=== PATIENT | male | born 1975 | race Caucasian/White ===

== ENCOUNTER 2017-04-08 08:00 | Outpatient (RCR) | payer BC, SELFPAY | END 2017-04-20 23:59 | LOC: NS 08:00 | PROVIDERS: PCP Family Medicine; Visit Provider Family Medicine | DX: E66.9 Obesity, unspecified (principal); Z68.41 Body mass index [BMI] 40.0-44.9, adult; Z71.3 Dietary counseling and surveillance | CPT/HCPCS: 97802; 97803 ==

== ENCOUNTER → 2017-05-04 17:33 | Outpatient (CLI) | payer BC, SELFPAY ==
--- NOTE | 2017-05-04 17:38 | RAD_ITS ---
STUDY: X-RAY - LEFT SHOULDER REASON FOR EXAM: Male, 42 years old. Pain TECHNIQUE: Four view(s) of the LEFT shoulder were obtained. COMPARISON: April 29, 2005 FINDINGS: The glenohumeral joint is within normal limits. The acromioclavicular joint is normal in appearance. No acute abnormalities are seen in the visualized clavicle. No acute abnormalities are seen in the visualized humerus. The soft tissues are unremarkable. The visualized lung and ribs are unremarkable. RAD/Shoulder min 2 Views IMPRESSION: No significant abnormalities are seen radiographically in the left shoulder. Electronically Signed: Ursula Martino MD at 13:42 EDT Tel Direct: [phone], Service support ,
== END ==
PROVIDERS: Family Provider Family Medicine; PCP Family Medicine; Visit Provider Anesthesiology Pain Medicine
DX: M25.512 Pain in left shoulder (principal)
CPT/HCPCS: 73030

== ENCOUNTER 2018-01-03 08:31 | Emergency (ER) | payer BC, SELFPAY ==
[2018-01-03 08:32] VITALS: BP 135/73; PULSE 70; RESP 18; TEMP 36.8; O2SAT 98; BMI 38.7
--- NOTE | 2018-01-03 08:43 | EKG12_ITS ---
Test Reason : Blood Pressure : / mmHG Vent. Rate : 074 BPM Atrial Rate : 074 BPM P-R Int : 156 ms QRS Dur : 098 ms QT Int : 392 ms P-R-T Axes : 042 -13 005 degrees QTc Int : 435 ms Normal sinus rhythm Normal ECG Confirmed by SAVANNA CARABALLO MD ([id number]), script editor BRODY RUDD ([id number]) on 01/06/2018 2:40:35 PM Referred By: RAMONA Confirmed By:SAVANNA CARABALLO MD
--- NOTE | 2018-01-03 08:45 | RAD_ITS ---
STUDY: X-RAY CHEST REASON FOR EXAM: Male, 42 years old. Chest pain and shortness of breath. TECHNIQUE: Single AP portable view of the chest. COMPARISON: None. FINDINGS: EKG electrodes are seen. The lungs are clear and expanded. There is no demonstrated pleural abnormality. Normal size heart. Normal mediastinum and flavia. Normal visualized pulmonary arteries. Normal visualized aortic arch and descending thoracic aorta. Normal visualized thoracic spine. Metallic anchor clips are seen overlying the right humeral head most likely secondary to prior rotator cuff surgery. There is no demonstrated abnormality of the visualized soft tissue structures of the upper abdomen. RAD/Chest 1 View (Portable) IMPRESSION: No acute abnormality is seen. Electronically Signed: Immanuel Sauer MD at 9:16 EST Tel [phone], Service support ,
[2018-01-03] MEDS: Aspirin 81 MG TAB.CHEW 324 MG PO (08:55)
[2018-01-03] MEDS: 0.9% Normal Saline 1,000 ML 150 ML IV (08:55)
[2018-01-03 08:56] VITALS: O2SAT 99
[2018-01-03 08:56] LABS: Absolute Lymphocyte Count 2.21 X10^3/ul (0.83-4.51); Basophil# 0.04 X10^3/uL; Basophil% 0.7 % (0-1); Eosinophil# 0.12 X10^3/uL; Hemoglobin 13.1 g/dl (13.0-16.5); Lymphocyte # 2.21 X10^3/ul (4.0); Lymphocyte % 36.3 % (19-41); Mean Corp Hgb Conc 32.8 g/gl (32-36); Mean Corpuscular Hgb 28.2 pg (27.0-32.0); Mean Corpuscular Volume 86.2 fL (80-94); Mean Platelet Vol. 8.3 fl (6.2-12.0); Monocyte# 0.73 X10^3/uL; Neutrophil # 2.98 X10^3/uL (2.7-7.7); Neutrophil % 48.8 % (47-70); Platelet Count 309 K/mm3 (150-450); RBC Distribution Width CV 13.3 % (11.6-14.6); RBC Distribution Width SD 40.7 fl (35.1-43.9); Red Blood Count 4.64 M/mm3 (4.6-6.2); White Blood Count 6.1 K/mm3 (4.4-11.0)
[2018-01-03] MEDS: LORazepam 2 MG/ML Syringe 1 MG IV (08:56)
[2018-01-03 08:57] LABS: POSITIVE COUNT NO; POSITIVE DIFFERENTIAL NO; POSITIVE MORPHOLOGY NO
[2018-01-03 09:22] LABS: BUN 16 mg/dL (7-18); Creatinine, Serum 1.24 mg/dL (0.70-1.30); Estimated Creatinine Clearance 76.61 ml/min; Glucose 113 mg/dL (74-106)
[2018-01-03 09:23] LABS: Anion Gap 10 (5-15); BUN/Creat Ratio 12.9 RATIO (10-20); Chloride 101 mmol/L (98-107); EST Glomerular Filtration Rate 68 mL/min (>60); Est Glom Filt Rate - Afr Amer 83 mL/min (>60); Potassium 4.1 mmol/L (3.5-5.1); Sodium Level 138 mmol/L (136-145)
[2018-01-03 09:55] VITALS: BP 111/75; PULSE 70; RESP 8; O2SAT 95
[2018-01-03 10:01] LABS: D-Dimer Quantitative (DVT/PE) < 0.27 FEU/ug/m (0.27-0.49)
[2018-01-03 10:16] VITALS: BP 131/82; PULSE 75; RESP 18; O2SAT 95
--- NOTE | 2018-01-03 10:23 | ED.VISSUMM ---
- ER Visit Summary Date of Service: 01/03/18 Chief Complaint: [Chest pain] History of Present Illness: The patient is a 42 M [presents to the emergency department complaint of chest pain that started about 45 minutes prior to coming the emergency department. Patient states that initially he was standing and began feeling lightheaded. Patient then developed tightness in his chest and numbness throughout his entire body. Patient felt very nauseated and felt short of breath. On arrival he is feeling improved but still has some mild retrosternal chest discomfort. Patient does have a history of anxiety and states that currently he is being weaned off his Effexor and is also on BuSpar currently. Patient denies recent travel or surgery. Patient also says that over the last week he has had intermittent chest tightness and discomfort but it is not been exertional and can just happen at any time. There is no family history of heart disease. Patient does not have a history of hypertension, diabetes, high cholesterol, or family history. Patient is not a smoker.] Physical Examination: [HEENT-PERRLA, EOMI. Cranial nerves II through XII grossly intact. TMs clear. Mucous membranes moist. No adenopathy. Cardiovascular-regular rate and rhythm without murmur or ectopy Lungs-clear to auscultation, chest wall stable without crepitus or subcu emphysema Abdomen-normoactive bowel sounds, soft, nontender, no rebound or rigidity, no peritoneal signs. Extremities-intact ?4, normal range of motion, normal pulses, atraumatic] Test Results: [EKG obtained arrival shows sinus rhythm with a ventricular rate of 74 bpm with no acute ST segment changes. CBC with differential was normal. Chemistries were normal. Troponin was less than 0.015. D-dimer was normal less than 0.27. Chest x-ray was normal.] Emergency Department Course and Treatment: While in the department patient was given aspirin and 1 mg of Ativan IV. Given his RYAN risk score of 0 and a heart score of 0 I had a long discussion with patient and explained to him that I thought he was low risk for cardiac disease and that I felt clinically and based on his symptomatology the etiology of his symptoms may be related more to anxiety. Patient in agreement however initially he did agree to stay for a 2-hour troponin. Patient eventually decided that he was feeling 100% resolved and without symptoms and did not want to wait for repeat troponin but would rather follow-up with his primary care physician.] Treatment Plan: [Follow-up with primary care physician within next 3-5 days. Patient advised to return if worsening chest pain, increasing shortness of breath, or condition should worsen anyway.] Disposition: [Discharged home in stable condition] Impression: [Chest pain Anxiety] This note was generated with [employer] dictation software. It may contain incorrect words, spelling, and punctuation that were not noted in review of the chart prior to signing ED Disposition - Plan for ED Patient: Chief Complaint: Chest Pain Referrals: David Montoya MD [Primary Care Provider] -
--- NOTE | 2018-01-03 10:26 | ED.DEP ---
ED Disposition - Plan for ED Patient: Chief Complaint: Chest Pain Instructions: ED Chest Pain Atypical Unkn Cause, ED Stress React Referrals: David Montoya MD [Primary Care Provider] - 3-5 Days
[2018-01-03 11:03] VITALS: BP 128/75; PULSE 66; RESP 14; O2SAT 97
== END 2018-01-03 11:04 | disposition home or self-care (01) ==
PROVIDERS: Emergency Provider Emergency Medicine; Family Provider Family Medicine; PCP Family Medicine
DX: R07.9 Chest pain, unspecified (principal); F41.9 Anxiety disorder, unspecified; R42 Dizziness and giddiness; R20.0 Anesthesia of skin; R11.0 Nausea; R06.02 Shortness of breath; I49.3 Ventricular premature depolarization; Z79.899 Other long term (current) drug therapy
CPT/HCPCS: 71045; 80048; 84484; 85025; 85379; 93005; 96361; 96374; 99284; J7030; A4216

== ENCOUNTER → 2018-07-20 06:04 | Outpatient (CLI) | payer BC, SELFPAY ==
[2018-03-25 09:20] VITALS: BMI 45.6
[2018-07-20 08:04] LABS: ALB/GLOB Ratio 0.8 RATIO (0.9-2.4); AST(SGOT) 24 U/L (15-37); Alanine Aminotransfer ALT/SGPT 48 U/L (16-61); Albumin, Serum 3.5 g/dL (3.2-5.0); Alkaline Phosphatase 55 U/L (45-117); Anion Gap 11 (5-15); BUN 17 mg/dL (7-18); BUN/Creat Ratio 13.2 RATIO (10-20); Calcium,Total 9.2 mg/dL (8.5-10.1); Chloride 103 mmol/L (98-107); Cholesterol 233 mg/dL (200); Creatinine, Serum 1.29 mg/dL (0.70-1.30); EST Glomerular Filtration Rate 65 mL/min (>60); Est Glom Filt Rate - Afr Amer 79 mL/min (>60); Globulin 4.4 g/dL (2.2-4.2); Glucose 106 mg/dL (74-106); High Density Lipoprotein 34 mg/dL; Potassium 3.9 mmol/L (3.5-5.1); Protein, Total 7.9 g/dL (6.4-8.2); Sodium Level 141 mmol/L (136-145); Triglycerides 267 mg/dL; Very Low Density Lipoprotein 53 mg/dL (5-40)
== END ==
LOC: LAB.FUTURE 06:09 → LAB 07-21 10:50
PROVIDERS: Family Provider Family Medicine; PCP Family Medicine; Referring Provider Family Medicine; Visit Provider Family Medicine
DX: E78.5 Hyperlipidemia, unspecified (principal); R73.01 Impaired fasting glucose
CPT/HCPCS: 36415; 80053; 80061

== ENCOUNTER → 2018-09-29 08:00 | Outpatient (CLI) | payer BC, SELFPAY ==
[2018-03-25 09:20] VITALS: BMI 45.6
[2018-09-29 10:13] LABS: Hematocrit 41.2 % (40-54); Hemoglobin 13.3 g/dL (13.0-16.5); Mean Corp Hgb Conc 32.3 g/dL (32-36); Mean Corpuscular Hgb 28.4 pg (27.0-32.0); Mean Platelet Vol. 9.1 fl (6.2-12.0); Platelet Count 278 K/mm3 (150-450); RBC Distribution Width CV 12.5 % (11.6-14.6); RBC Distribution Width SD 40.4 fl (35.1-43.9); Red Blood Count 4.68 M/mm3 (4.6-6.2); White Blood Count 5.8 K/mm3 (4.4-11.0)
[2018-09-29 10:51] LABS: Vitamin B12 481 pg/mL (211-911); Vitamin D,25 Hydroxy 21.2 ng/mL (29.95-100.01)
[2018-09-29 10:59] LABS: Iron 56 ug/dL (65-175)
== END ==
PROVIDERS: Family Provider Family Medicine; PCP Family Medicine; Referring Provider Family Medicine; Visit Provider Family Medicine
DX: R42 Dizziness and giddiness (principal); R53.83 Other fatigue
CPT/HCPCS: 36415; 82306; 82607; 83540; 84403; 84443; 85027

== ENCOUNTER → 2019-03-28 15:10 | Outpatient (CLI) | payer BC, SELFPAY ==
[2018-03-25 09:20] VITALS: BMI 45.6
--- NOTE | 2019-03-28 15:30 | MRI_ITS ---
STUDY: MRI LUMBAR SPINE WITHOUT CONTRAST REASON FOR EXAM: Male, 44 years old. LOWER BACK PAIN -- pain low back and left leg x 3 years, NKI TECHNIQUE: Standardized fat and water weighted pulse sequences were obtained in the sagittal and axial planes. COMPARISON: Lumbar spine x-ray dated July 07, 2016 FINDINGS: No demonstrated marrow edema or compression deformity or fracture line. Predominance of red marrow noted. No suspicious or aggressive marrow process is present. Normal lumbar lordosis. There is no substantial scoliosis. Normal conus medullaris that terminates at the T12. L1-2: Normal. L2-3: Normal. L3-4: Minimal endplate degenerative signal is present. Moderate disc space narrowing is present without bulging or herniation. Normal bilateral facet joints. Normal central canal and bilateral lateral recesses. Normal bilateral intervertebral neural foramina. L4-5: Normal endplates. Normal disc height, hydration and morphology. Normal bilateral facet joints. Normal central canal and bilateral lateral recesses. Normal bilateral intervertebral neural foramina. L5-S1: Normal endplates. Mild posterior disc space narrowing is present as well as a small tear in the posterior aspect of the annulus of the disc with an associated disc protrusion. Normal bilateral facet joints. Normal central canal and bilateral lateral recesses. Normal bilateral intervertebral neural foramina. Normal visualized sacral ala. Normal visualized paraspinous soft tissue structures. MRI/Spine Lumbar (Routine) IMPRESSION: 1. Multilevel degenerative changes, as described above. 2. Small annular tear and disc protrusion at L5-S1. Electronically Signed: Chan Medrano MD at 21:55 EST , Service support ,
== END ==
PROVIDERS: PCP Family Medicine; Referring Provider Anesthesiology Pain Medicine; Visit Provider Anesthesiology Pain Medicine
DX: M54.9 Dorsalgia, unspecified (principal); M79.606 Pain in leg, unspecified
CPT/HCPCS: 72148

== ENCOUNTER 2019-04-03 09:20 | Emergency (ER) | payer BC, SELFPAY ==
[2018-03-25 09:20] VITALS: BMI 45.6
[2019-04-03 09:21] VITALS: BP 150/94; PULSE 66; RESP 15; TEMP 36.6; O2SAT 98; BMI 41.8
--- NOTE | 2019-04-03 10:02 | EKG12_ITS ---
Test Reason : CP Blood Pressure : / mmHG Vent. Rate : 065 BPM Atrial Rate : 065 BPM P-R Int : 148 ms QRS Dur : 094 ms QT Int : 408 ms P-R-T Axes : 042 -18 002 degrees QTc Int : 424 ms Normal sinus rhythm Normal ECG Confirmed by SANDRINE RAMIREZ ([id number]), newspaper copy editor BRODY RUDD ([id number]) on 04/05/2019 3:19:03 PM Referred By: LUCINA Confirmed By:SANDRINE RAMIREZ
--- NOTE | 2019-04-03 10:03 | ED.DCSUM_ITS ---
History of Present Illness Chief Complaint: Chest Pain Informant: Patient Narrative: Patient presents to the emergency department with intermittent chest pain. 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 On Tuesday he began to experience 20 to 30 seconds of what he describes as a heart ache. This was followed with resolution but then a sharp pain in the shoulder and the arm that resolved after several minutes. He did note some associated sweating and shortness of breath. He states each episode would be a little bit different in its location in the chest but it always finalized with the arm pain. He states that he intermittently gets aches in his chest but this felt different. This morning he felt short of breath so he called his PCP who recommended he come to emergency. No first-degree relatives with coronary artery disease under the age of 55. He denies any history of hypertension high cholesterol diabetes. No recent long travel or surgeries. No previous history of DVT PE. Patient is very physically active and works construction. All of his symptoms came on over the weekend while at rest and none with exertion. Past Medical History - Allergies and Home Meds Allergies/Adverse Reactions: Allergies No Known Allergies Allergy (Verified 04/03/19 09:29) Primary Care Physician: David Montoya MD [Primary Care Provider] - Smoking Status: Former smoker Review of Systems General: Denies: Chills, Fever, Sweats Eyes: Denies: Visual changes - bilaterally, Diplopia ENT: Denies: Rhinorrhea, Sore throat Cardiovascular: Reports: Chest pain. Denies: Palpitations Respiratory: Reports: Dyspnea. Denies: Cough, Dyspnea on exertion Gastrointestinal: Denies: Abdominal pain, Nausea, Vomiting, Diarrhea, Melena, Hematochezia Genitourinary: Denies: Dysuria, Hematuria, Frequency Musculoskeletal: Denies: Back pain, Extremity Pain Skin: Denies: Rash, Wounds Neurological: Denies: Headache, Weakness, Numbness Psych: Reports: Anxiety. Denies: Depression, Suicidal thoughts, Suicidal ideations Physical Exam Vital Signs/Narrative: Vital Signs Temp Pulse Resp BP Pulse Ox 04/03/19 09:21 98 F 66 15 150/94 H 98 Inital Vital Signs reviewed: Yes General: Well nourished, Well developed, Obese, No Acute Distress Head: Normocephalic, Atraumatic Eyes: Perrl, EOMI ENT: Moist mucous membranes, No rhinorrhea Neck: Supple, Nontender Cardiovascular: Regular rate, Regular rhythm, No murmurs Respiratory: No distress, CTA bilaterally, Chest nontender Abdomen: Soft, Nontender, Nondistended, Normal bowel sounds Back: Nontender, Normal Inspection Extremities: Nontender, No edema Skin: Normal color, No rash Neurological: Alert, Oriented x3, Cranial nerves II-XII grossly intact, Normal Strength, Normal Sensation Psychological: Normal affect, Normal Mood Diagnostic/Tx/Re-eval - Rhythm Strip Rhythm Strip: Sinus Rhythm Rate: 65 Ectopy: None - Medical Decision Making EKG is a normal sinus rhythm. Troponin is negative d-dimer is negative. Chest x-ray shows a normal mediastinal silhouette. Patient's heart score is 2 which puts him in the low risk category. Patient will follow-up as an outpatient for cardiac stress testing return if worsening or concerns. All discussion and answers were done at the bedside to the satisfaction of the patient. ED Disposition - Plan for ED Patient: Disposition: Home or Assisted Living Diagnosis: Chest pain Instructions: CHEST PAIN, Uncertain Cause Referrals: David Montoya MD [Primary Care Provider] - As soon as possible (discuss cardiac stress testing to complete your cardiac evaluation)
--- NOTE | 2019-04-03 10:03 | RAD_ITS ---
STUDY: X-RAY CHEST REASON FOR EXAM: Male, 44 years old. PT C/O 4-5 EPISODES OF CP OVER THE WEEKEND THAT LAST 20-30 SECONDS. THEY WERE FOLLOWED BY A STABBING PAIN IN LEFT ARM AND THEN DULL ACHE IN ELBOW. PT HAS ALSO BEEN INTERMITTENTLY FEELING LIGHTHEADED AND LIKE HE CAN''T QUITE CATCH HIS BREATH -- HX VENTRICULAR ECTOPY TECHNIQUE: PA and lateral views of the chest. COMPARISON: Comparison is made with prior examination dated January 03, 2018. FINDINGS: EKG electrodes are seen. The lungs are clear and expanded. There is no demonstrated pleural abnormality. Normal size heart. Normal mediastinum and flavia. Normal visualized pulmonary arteries. Normal visualized aortic arch and descending thoracic aorta. Normal visualized thoracic spine. Normal visualized ribs, clavicles, and shoulders. There is no demonstrated abnormality of the visualized soft tissue structures of the upper abdomen. RAD/Chest PA and Lateral IMPRESSION: Normal x-ray examination of the chest. Electronically Signed: Immanuel Sauer, at 10:43 EST , Service support ,
[2019-04-03 10:14] LABS: Absolute Lymphocyte Count 2.58 X10^3/uL (0.83-4.51); Absolute Neutrophil Count 4.8 X10^3/uL (2.0-7.7); Basophil# 0.04 X10^3/uL; Basophil% 0.5 % (0-1); Eosinophil# 0.13 X10^3/uL; Eosinophils% 1.5 % (0-5); Hematocrit 44.1 % (40-54); Hemoglobin 14.1 g/dL (13.0-16.5); Lymphocyte # 2.58 X10^3/ul (4.0); Lymphocyte % 30.5 % (19-41); Mean Corpuscular Hgb 28.3 pg (27.0-32.0); Mean Corpuscular Volume 88.6 fL (80-94); Mean Platelet Vol. 8.4 fl (6.2-12.0); Monocyte# 0.83 X10^3/uL; Monocyte% 9.8 % (0-10); NRBC Flagged by Analyzer 0 % (0-5); Neutrophil % 56.6 % (47-70); Platelet Count 292 K/mm3 (150-450); RBC Distribution Width CV 13.3 % (11.6-14.6); RBC Distribution Width SD 43.4 fl (35.1-43.9); Red Blood Count 4.98 M/mm3 (4.6-6.2); White Blood Count 8.5 K/mm3 (4.4-11.0)
[2019-04-03 10:23] LABS: D-Dimer Quantitative (DVT/PE) <= 0.27 FEU/ug/m (0.27-0.49)
[2019-04-03 10:24] LABS: Anion Gap 6 (5-15); BUN 18 mg/dL (7-18); BUN/Creat Ratio 15.1 RATIO (10-20); Calcium,Total 9.3 mg/dL (8.5-10.1); Chloride 104 mmol/L (98-107); Creatinine, Serum 1.19 mg/dL (0.70-1.30); EST Glomerular Filtration Rate 71 mL/min (>60); Est Glom Filt Rate - Afr Amer 86 mL/min (>60); Estimated Creatinine Clearance 78.24 ml/min; Glucose 103 mg/dL (74-106); Potassium 3.9 mmol/L (3.5-5.1); Sodium Level 138 mmol/L (136-145)
[2019-04-03 10:47] VITALS: BP 151/93; PULSE 58; RESP 18; O2SAT 99
[2019-04-03 12:16] VITALS: BP 148/79; PULSE 61; RESP 16; O2SAT 98
== END 2019-04-03 12:17 | disposition home or self-care (01) ==
PROVIDERS: Emergency Provider Emergency Medicine; PCP Family Medicine
DX: R07.89 Other chest pain (principal); R06.02 Shortness of breath; M25.519 Pain in unspecified shoulder; Z87.891 Personal history of nicotine dependence
CPT/HCPCS: 71046; 80048; 84484; 85025; 85379; 93005; 99284; A4216

== ENCOUNTER → 2019-04-07 | Outpatient (CLI) | payer BC, SELFPAY ==
[2019-04-07 09:44] VITALS: BMI 41.8
--- NOTE | 2019-04-07 09:50 | MASS_PTH ---
PATIENT: VAIBHAV SOTO LOC: [facility] U#:[id number] AGE/SX: 44/M ROOM: RE04/07/[address]: Dr. José Miguel Arvizu MD : [id number] BED: DIS: 04/07/2019 SPEC #: [id number] RECD: 04/09/19 07:16 STATUS: TRICIA JULIUS #: [id number] LUCY: 04/07/19 09:[address]: José Miguel Arvizu DEPT: SURGICAL PATHOLOGY RECD BY: Andrew Barillas ENTERED: 04/09/19 09:17 SP TYPE: Mass OTHR DR: Dr. Hoang Montoya MD Tissues: Scalp, NOS Procedures: Surgery Specimen Level IV HEADER OPERATION: Excision scalp mass PRE-OP DIAGNOSIS: Scalp mass TISSUE SUBMITTED: Scalp tissue MICROSCOPIC DIAGNOSIS Scalp mass, biopsy: Mature adipose tissue, consistent with lipoma. KRISTIN:carroll 04/10/19 MICROSCOPIC DESCRIPTION Slides are reviewed. GROSS DESCRIPTION Received in fixative is one container labeled with the patient's name and designated scalp tissue. The specimen consists of an ovoid fragment of yellow fatty tissue measuring 2.9 x 2.4 x 0.8 cm. Serial sections reveal homogenous, yellow cut surfaces without areas of cyst formation, necrosis or myxoid change. Pet Care Attendant sections are submitted in one cassette. / AM:carroll 04/09/19 TC:1 CPT: 13509
== END | disposition home or self-care (01) ==
LOC: LABSPEC 04-09 08:32
PROVIDERS: PCP Family Medicine; Referring Provider Surgery; Visit Provider Surgery
DX: L98.9 Disorder of the skin and subcutaneous tissue, unspecified (principal)
CPT/HCPCS: 88305

== ENCOUNTER → 2019-04-18 06:40 | Outpatient (CLI) | payer BC, SELFPAY ==
[2019-04-07 09:44] VITALS: BMI 41.8
--- NOTE | 2019-04-20 15:29 | STRESSREP ---
Stress Test Report Date: [04/18/2019] Procedure: Exercise tolerance test/imaging study Indications: Chest pain Consent: Per the patient Procedure: The patient exercised on a Sharif protocol for 7 minutes and 30 seconds achieving a peak heart rate of 162 bpm (91 % predicted maximal heart rate) with a peak blood pressure 140/82 mmHg and a peak MET capacity of 9.3 METs. The baseline ECG demonstrated normal sinus rhythm. The peak exercise ECG demonstrated no significant ischemic changes. EKG during recovery revealed no significant ischemic changes [There were no cardiac dysrhythmias pretest, during exercise, or recovery]. The functional capacity was slightly decreased for age. There was [no complaint of chest discomfort during exercise or recovery]. The examination was discontinued secondary to dyspnea, leg discomfort. Impression: 1. Technically adequate (percent predicted maximal heart rate greater than 85%) exercise tolerance test 2. Stress test is negative for exercise-induced EKG changes of ischemia 3. The test test is negative for exercise-induced chest pain 4. Functional capacity is slightly decreased for age 5. Nuclear images pending Myocardial perfusion imaging study: Technique: The patient was injected with 14.7 mCi of technetium 99m Cardiolite and subsequently rest SPECT Cardiolite nuclear imaging was obtained in the horizontal long, vertical long, and short axis views. The patient exercised on a Sharif protocol. Please see above for details. The patient was injected with 44.9 mCi of technetium 99m Cardiolite and subsequently stress SPECT Cardiolite nuclear imaging was obtained in the horizontal long, vertical long, and short axis views. A gated Cardiolite study at peak stress was obtained. Interpretation: Rest and stress SPECT Cardiolite nuclear imaging status post realignment, normalization, and attenuation correction, demonstrates mild decrease in the myocardial radioisotope uptake in the apex on both the rest and stress images. There is no significant reversibility. These findings are suggestive of apical thinning, normal variant. The gated Cardiolite study demonstrates no significant regional wall motion abnormalities. The reported LVEF is 63 %. Impression: 1. There is no evidence of significant ischemia or infarction. 2. The gated Cardiolite study reports an LVEF of 63 %. This note was generated with [employer]ation software. It may contain incorrect words, spelling, and punctuation that were not noted in checking the note before signing.
== END ==
PROVIDERS: PCP Family Medicine; Referring Provider Family Medicine; Visit Provider Family Medicine
DX: R07.9 Chest pain, unspecified (principal)
CPT/HCPCS: 78452; 93017; A9500; A4216

== ENCOUNTER → 2020-05-07 17:20 | Outpatient (CLI) | payer BC, SELFPAY ==
[2019-04-07 09:44] VITALS: BMI 41.8
--- NOTE | 2020-05-07 17:22 | RAD_ITS ---
STUDY: X-RAY - CERVICAL SPINE REASON FOR EXAM: Male, 45 years old. HEADACHE TECHNIQUE: 7 view(s) of the cervical spine were obtained including oblique views and flexion and extension views.. COMPARISON: None FINDINGS: Normal anterior atlantoaxial articulation. Normal odontoid process. There is straightening of the normal cervical lordosis. Normal vertebral bodies and endplates. Normal disc space heights. Normal visualized intervertebral neuroforamina. The soft tissue structures are unremarkable. RAD/Cerv Spine Obl/Flex/Ext Comp IMPRESSION: Normal x-ray examination of the visualized cervical spine. Electronically Signed: Immanuel Sauer MD at 15:46 EDT , Service support ,
== END ==
PROVIDERS: PCP Family Medicine; Referring Provider Family Medicine; Visit Provider Family Medicine
DX: R51.9 Headache, unspecified (principal)
CPT/HCPCS: 72052

== ENCOUNTER → 2020-10-17 07:05 | Outpatient (CLI) | payer BC, SELFPAY ==
[2020-10-17 10:19] LABS: Absolute Lymphocyte Count 2.04 X10^3/uL (0.83-4.51); Absolute Neutrophil Count 2.7 X10^3/uL (2.0-7.7); Basophil# 0.07 X10^3/uL; Basophil% 1.2 % (0-1); Eosinophil# 0.17 X10^3/uL; Eosinophils% 2.9 % (0-5); Hemoglobin 12.7 g/dL (13.0-16.5); Lymphocyte # 2.04 X10^3/ul (0.83-4.51); Lymphocyte % 34.5 % (19-41); Mean Corp Hgb Conc 32.6 g/dL (32-36); Mean Corpuscular Hgb 28.7 pg (27.0-32.0); Mean Corpuscular Volume 88.2 fL (80-94); Mean Platelet Vol. 9.5 fl (6.2-12.0); Monocyte# 0.95 X10^3/uL; NRBC Flagged by Analyzer 0 % (0-5); Neutrophil # 2.68 X10^3/uL (2.7-7.7); Neutrophil % 45.2 % (47-70); Platelet Count 257 K/mm3 (150-450); RBC Distribution Width CV 12.6 % (11.6-14.6); RBC Distribution Width SD 40.8 fl (35.1-43.9); Red Blood Count 4.42 M/mm3 (4.6-6.2); White Blood Count 5.9 K/mm3 (4.4-11.0)
[2020-10-17 10:42] LABS: Vitamin D,25 Hydroxy 29.4 ng/mL
[2020-10-17 11:07] LABS: ALB/GLOB Ratio 0.9 RATIO (0.9-2.4); AST(SGOT) 20 U/L (15-37); Alanine Aminotransfer ALT/SGPT 54 U/L (16-61); Albumin, Serum 3.4 g/dL (3.2-5.0); Alkaline Phosphatase 61 U/L (45-117); Anion Gap 6 (5-15); BUN 14 mg/dL (7-18); BUN/Creat Ratio 12.6 RATIO (10-20); Calcium,Total 8.8 mg/dL (8.5-10.1); Chloride 107 mmol/L (98-107); Creatinine, Serum 1.11 mg/dL (0.70-1.30); EST Glomerular Filtration Rate 77 mL/min (>60); Est Glom Filt Rate - Afr Amer 93 mL/min (>60); Globulin 3.9 g/dL (2.2-4.2); Glucose 113 mg/dL (74-106); Potassium 4.4 mmol/L (3.5-5.1); Protein, Total 7.3 g/dL (6.4-8.2); Sodium Level 140 mmol/L (136-145)
== END ==
PROVIDERS: PCP Family Medicine; Referring Provider Family Medicine; Visit Provider Family Medicine
DX: Z00.00 Encounter for general adult medical examination without abnormal findings (principal); R14.0 Abdominal distension (gaseous); E55.9 Vitamin D deficiency, unspecified
CPT/HCPCS: 36415; 80053; 82306; 85025

== ENCOUNTER → 2020-10-20 08:51 | Outpatient (CLI) | payer BC, SELFPAY ==
--- NOTE | 2020-10-20 09:05 | RAD_ITS ---
CLINICAL INDICATION: 45-year-old female presenting with dysphagia. EXAM: Double contrast esophagram. TECHNIQUE: Standard double phase esophagram performed with effervescent capsules and thick and thin barium. FINDINGS: Unremarkable transit of the contrast bolus within the oral cavity, unremarkable transit through the hypopharynx, no evidence of laryngeal penetration or aspiration was seen. Unremarkable transit through the esophagus, no evidence of gastroesophageal stricture or webs, no evidence of esophageal diverticula visualized. Unremarkable esophageal peristalsis seen. Small type I hiatus hernia visualized Fluoroscopy time 1.15 minutes. Dose area product: 132.06 mGycm2 RAD/Esophagus Dual Contrast IMPRESSION: Small type I hiatus hernia and mild gastroesophageal reflux. Electronically Signed: Juan Pablo Falcon MD at 12:29 EDT Tel , Service support ,
== END ==
PROVIDERS: PCP Family Medicine; Referring Provider Family Medicine; Visit Provider Family Medicine
DX: R14.0 Abdominal distension (gaseous) (principal)
CPT/HCPCS: 74221

== ENCOUNTER 2020-10-31 06:32 | Emergency (ER) | payer OTHER, BC, SELFPAY ==
[2020-10-31 06:35] VITALS: BP 158/100; PULSE 68; RESP 22; TEMP 35.2; O2SAT 98; BMI 45.1
--- NOTE | 2020-10-31 06:43 | RAD_ITS ---
STUDY: X-RAY - RIGHT HAND REASON FOR EXAM: Right hand injury, swelling, open wound between first and second metacarpals. TECHNIQUE: 3 view(s) of the hand. COMPARISON: None. FINDINGS: Normal radiocarpal articulation. Normal distal radioulnar joint. Normal visualized carpal bones. Normal carpal articulations Normal carpometacarpal articulation of the thumb. Normal second through fifth carpometacarpal joints. Normal metacarpi. Normal metacarpophalangeal joint of the thumb. Normal interphalangeal joint of the thumb. Normal proximal and distal phalanges of the thumb. Normal metacarpophalangeal joints of the second through fifth fingers. Normal proximal and distal interphalangeal joints of the second through fifth fingers. Normal phalanges of the second through fifth fingers. There is soft tissue swelling between the first and second metacarpals. RAD/Hand Min 3 Views IMPRESSION: Soft tissue swelling. No demonstrated fracture. Electronically Signed: Lefty Ramirez MD at 7:11 EDT Tel , Service support ,
--- NOTE | 2020-10-31 06:48 | NURSING ---
CALLED [facility]. NO ONE ANSWER. CALLED YULIYA
[2020-10-31] MEDS: Ondansetron 4 MG/2 ML Vial IV (06:55)
--- NOTE | 2020-10-31 06:55 | NURSING ---
[facility], CALLED BACK JORY [facility], CALLED BACK. JORY IN ROUTE.
[2020-10-31] MEDS: Morphine 4 MG/ML Syringe IV (06:57)
--- NOTE | 2020-10-31 08:34 | EDS_ITS ---
HPI History of Present Illness Chief Complaint: Upper Extremity Injury Informant: patient Narrative Narrative: 45-year-old male presents to the emergency room after a crush injury to the right hand. Patient had a large piece of concrete fall down onto his hand. Notes lacerations he states that the hand is swollen and feels numb. Tetanus Immunization: <5 years [facility] Medical History Anxiety Hiatal hernia Lipoma Home Medications nebivolol 5 mg PO QODAY 01/03/18 [History Last Taken 01/03/18 5 MG] venlafaxine 112.5 mg PO QHS 01/03/18 [History Last Taken 01/03/18 25 MG] Allergy/AdvReac Type Severity Reaction Status Date / Time No Known Allergies Allergy Verified 10/31/20 06:33 Social History (Updated 10/31/20 @ 08:[address] Luis Manuel Tripp DO) Smoking Status: Current some day smoker tobacco type: smokeless tobacco substance use type: does not use ROS ROS ED Constitutional Constitutional ED: Denies chills or weight loss Eyes Eyes: Denies change in vision or diplopia ENT ENT ED: Denies ear pain, rhinorrhea or sore throat Cardiovascular Cardiovascular: Denies chest pain, orthopnea, palpitations or racing heartbeat Respiratory/Chest Respiratory/Chest: Denies cough, dyspnea or orthopnea Gastrointestinal Gastrointestinal: Denies abdominal pain, diarrhea, nausea or vomiting Genitourinary Genitourinary ED: Denies dysuria, hematuria or urinary frequency Musculoskeletal Musculoskeletal: Denies arthralgias or myalgias Integumentary Reports Abrasions and other Details: Right hand lacerations ; Denies abscess or rash Neurologic Neurologic: Denies headache(s) or weakness Psychiatric Psychiatric: Denies anxiety, depression, suicidal ideation or suicidal thoughts Endocrine Endocrinology: Denies polydipsia, polyphagia or polyuria Allergic/Immunologic Allergic/Immunologic ED: Denies mouth swelling, tongue swelling or urticaria EXAM Physical Exam Const Vital Signs: 10/31/20 06:35 Temperature 95.4 F L Temperature Source Temporal Pulse Rate 68 Respiratory Rate 22 H Blood Pressure 158/100 H Blood Pressure Mean 119 Pulse Ox 98 Oxygen Delivery Method Room Air Positive well nourished and well developed General Appearance ED: well developed HEENT Reports normocephalic, head/scalp atraumatic and moist mucous membranes Eyes PERRL and EOMs intact bilaterally Neck no lymphadenopathy, supple and no JVD Resp normal respiratory effort and clear to auscultation bilaterally Cardio regular rate, regular rhythm and no murmurs GI normal to inspection, nondistended, normoactive bowel sounds and non-tender Palpation: soft Back/Spine no CVA tenderness and normal ROM Extremity full ROM Extremity Narrative: Excellent capillary refill of all 5 fingers of the right hand. General Extremety ED: Yes edema General Extremity: edema Neuro oriented x3 and CN's II-XII intact bilaterally Sensorium / Orientation: alert Motor Exam: strength 5/5 throughout Psych mental status grossly normal Mood & Affect: Negative for depressed or tearful Skin no rashes or lesions noted and no wounds Skin Narrative: There is a 3-1/2 cm linear laceration in the webspace between the thumb and index finger. There is a 2 cm laceration over the dorsum of the mid right hand. There are multiple skin avulsions of the dorsum of the right hand and thumb. He reports decreased sensation of the fingers and hand MDM MDM MDM Narrative Medical decision making narrative: My interpretation of the plain films of the right hand is no acute fracture. Noted soft tissue swelling. Wounds were locally anesthetized using 1% lidocaine. They were washed with Shur-Clens and explored. There were closed using 3-0 Ethilon sutures. The wounds with the skin avulsions were debrided. Wounds were then dressed with Vaseline-based gauze and then sterile Krista. Patient reports that all the sensation has returned to his fingers with the exception of for the medial aspect of the right thumb. This could be due to the lidocaine infiltration however I cannot rule out a nerve injury. He reported decreased sensation of all the fingers and hand on arrival. Patient was advised to monitor for this she is Workmen's Comp. when he sees them. Work restrictions given. Follow-up with Workmen's Comp. Radiography Diagnostic Testing: Radiology Impression Hand X-Ray 10/31/20 06:43 IMPRESSION: Soft tissue swelling. No demonstrated fracture. Electronically Signed: Lefty Ramirez MD at 7:11 EDT Tel , Service support , Discharge Plan Triage Chief Complaint: Upper Extremity Injury ED Provider: Luis Manuel Tripp Dx/Rx/DC Orders Clinical Impression: Crushing injury of right hand, Laceration of hand, right, Avulsion of skin of right hand Instructions: ED Crush Injury, Hand, ED Laceration: All Closures Prescriptions: No Action venlafaxine 100 MG tablet 112.5 mg PO QHS RF: 0 nebivolol 5 MG tablet 5 mg PO QODAY RF: 0 Primary Care Provider: David Montoya Referrals: David Montoya MD [Primary Care Provider] - [facility] - 10 Day for suture removal Disposition Disposition: Home, Self Care Discharge Date/Time: 10/31/20 09:31
[2020-10-31 09:27] VITALS: PULSE 81; RESP 18; O2SAT 99
--- NOTE | 2020-10-31 09:28 | ED.RN ---
THIS NURSE REVIEWED D/C INSTRUCTIONS WITH PT AND . BOTH VERBALIZED UNDERSTANDING OF INSTRUCTIONS. IV D/C. IV CATHETER INTACT. PT TOLERATED WELL. PT DENIES FURTHER NEEDS OR QUESTIONS AT THIS TIME. PT AMBULATES FROM ROOM ON OWN WITHOUT ASSISTANCE FROM STAFF
[2020-10-31] MEDS: Lidocaine 1% (20 ml mdv) 20 ML Vial INFILT (09:30)
== END 2020-10-31 09:31 | disposition home or self-care (01) ==
PROVIDERS: Emergency Provider Emergency Medicine; PCP Family Medicine
DX: S67.21XA Crushing injury of right hand, initial encounter (principal); S61.411A Laceration without foreign body of right hand, initial encounter; S61.401A Unspecified open wound of right hand, initial encounter; W23.0XXA Caught, crushed, jammed, or pinched between moving objects, initial encounter; Y93.9 Activity, unspecified; Y92.9 Unspecified place or not applicable; Y99.0 Civilian activity done for income or pay; F41.9 Anxiety disorder, unspecified; F17.200 Nicotine dependence, unspecified, uncomplicated; Z79.899 Other long term (current) drug therapy
CPT/HCPCS: 12002; 73130; 96374; 96375; 99285; J7040; A4216; J2405

== ENCOUNTER 2021-01-08 06:30 | Day surgery (SDC) | payer BC, SELFPAY ==
[2021-01-08] VITALS (7 sets, daily range): BP systolic 122–138; BP diastolic 71–82; PULSE 58–69; RESP 16; TEMP 36.2–36.5; O2SAT 95–100; BMI 43.9
--- NOTE | 2021-01-08 | IMM_PTH ---
PATIENT: VAIBHAV SOTO LOC: EN U#:[id number] AGE/SX: 45/M ROOM: RE01/08/[address]: Dr. Ernesto Gaspar DO : 1975 BED: DIS: 01/08/2021 SPEC #: [id number] RECD: 01/08/21 12:43 STATUS: TRICIA REKeshia #: [id number] LUCY: 01/08/21 00:[address]: Ernesto Gaspar DEPT: IMMUNOHISTOCHEMISTRY RECD BY: Cande English ENTERED: 01/08/21 12:43 SP TYPE: IMMUNO OTHR DR: Dr. Hoang Montoya MD Tissues: A - Stomach, NOS C - Pylorus D - Esophagus, NOS Procedures: H Pylori (initial) P53 (initial) KI-67 (add) PHYSICIAN & INSTITUTION [place] [id number] SPECIMEN INFORMATION: Tissue Source: A ? Gastric antrum biopsy, C ? Pylorus biopsy, D ? Distal esophagus biopsy Clinical Info: Anemia, change in bowel habits, bloating Specimen Number: [id number] A, C & D CPT code: 18926 x3, 31642 x2 METHODOLOGY: Deparaffinized sections of prefer/formalin-fixed tissue or PAP/DQ stained slides are incubated with monoclonal/polyclonal antibodies/oligonucleotide probes. Localization is made via biotin free immunoperoxidase method. Appropriate controls are performed and reacted as expected. Results on target cell population are indicated in the following table: RESULTS: ANTIBODY / CLONE RESULT Block A H Pylori (polyclonal) negative Block C P53 (DO-7) negative Ki-67 (30-9) positive, low Block D P53 (DO-7) positive Ki-67 (30-9) positive, low These tests were developed and their performance characteristics determined by [facility]. They may not have been cleared or approved by the U.S. Food and Drug Administration. The FDA has determined that such clearance or approval is not necessary. The above immunohistochemical/dualISH markers are ordered and reviewed by the pathologist. INTERPRETATION: A. Gastric antrum, biopsy: Negative for Helicobacter pylori organisms. C. Pylorus, biopsy: No evidence of dysplasia. D. Distal esophagus, biopsy: No evidence of dysplasia. AM:carroll 01/13/2021
[2021-01-08] MEDS: Lactated Ringers 1,000 ML 15 ML IV (06:50)
--- NOTE | 2021-01-08 07:30 | EGD_PTH ---
PATIENT: VAIBHAV SOTO LOC: EN U#:[id number] AGE/SX: 45/M ROOM: RE01/08/[address]: Dr. Ernesto Gaspar DO : 1975 BED: DIS: 01/08/2021 SPEC #: [id number] RECD: 01/08/21 10:57 STATUS: TRICIA JULIUS #: [id number] LUCY: 01/08/21 07:[address]: Enresto Gaspar DEPT: SURGICAL PATHOLOGY RECD BY: Katty Hendrickson ENTERED: 01/08/21 11:43 SP TYPE: EGD BIOPSY OT DR: Dr. Hoang Montoya MD Tissues: A - Gastric mucous membrane B - Duodenum, NOS C - Gastric mucous membrane D - Esophagus, NOS E - Ileum, NOS F - COLON BIOPSY Procedures: Special Stain Group II Surgery Specimen Level IV Amyloid Stain (control) Alcian Blue/PAS (control) HEADER OPERATION: Colonoscopy, EGD ([facility] [place]) PRE-OP DIAGNOSIS: Anemia, change in bowel habits, bloating TISSUE SUBMITTED: A ? Gastric antrum for H. pylori and pathology, B ? Duodenum biopsy, C ? Pylorus biopsy, D ? Distal esophagus biopsy, E ? Terminal ileum biopsy, F ? Random colon biopsy MICROSCOPIC DIAGNOSIS A. Gastric antrum, biopsy: Chronic gastritis. See comment. B. Duodenum, biopsy: Fragments of benign small bowel mucosa. Fragments of benign gastric mucosa. C. Gastric pylorus, biopsy: Mild chronic inflammation. Focal intestinal metaplasia. No evidence of dysplasia. See comment. D. Distal esophagus, biopsy: Fragments of gastric mucosa with intestinal metaplasia. No evidence of dysplasia. See comment. E. Terminal ileum, biopsy: Benign lymphoid aggregates. F. Colon, random biopsy: No significant pathologic change. See comment. AM:carroll 01/09/2021 COMMENT A. The results of immunohistochemistry for Helicobacter pylori will be reported separately ([id number]). C & D. Immunohistochemistry ([id number]) for P53 and Ki-67 will be performed and results will be reported separately. Alcian blue/PAS stain with matched control supports the above diagnosis. F. Eosinophils are mildly increased in the mucosa. The significance of this is unclear. Clinical correlation is suggested. MICROSCOPIC DESCRIPTION Slides are reviewed. GROSS DESCRIPTION A - Received in fixative is one container labeled with the patient's name and designated gastric antrum biopsy. The specimen consists of multiple irregular fragments of light parr soft tissue that in aggregate measure 0.6 x 0.6 x 0.1 cm. The specimen is totally submitted in one cassette. B - Received in fixative is one container labeled with the patient's name and designated duodenum biopsy. The specimen consists of multiple irregular fragments of light parr soft tissue that in aggregate measure 1 x 0.2 x 0.1 cm. The specimen is totally submitted in one cassette. C - Received in fixative is one container labeled with the patient's name and designated pylorus biopsy. The specimen consists of multiple irregular fragments of light parr soft tissue that in aggregate measure 0.6 x 0.2 x 0.1 cm. The specimen is totally submitted in one cassette. D - Received in fixative is one container labeled with the patient's name and designated distal esophagus biopsy. The specimen consists of multiple irregular fragments of light parr soft tissue that in aggregate measure 0.6 x 0.3 x 0.1 cm. The specimen is totally submitted in one cassette. E - Received in fixative is one container labeled with the patient's name and designated terminal ileum biopsy. The specimen consists of multiple irregular fragments of light parr soft tissue that in aggregate measure 1 x 0.5 x 0.1 cm. The specimen is totally submitted in one cassette. F - Received in fixative is one container labeled with the patient's name and designated random colon biopsy. The specimen consists of multiple irregular fragments of light parr soft tissue that in aggregate measure 2 x 1 x 0.1 cm. The specimen is totally submitted in one cassette. / SJ:rg 01/08/21 TC:3 [facility]: [id number] x6, [id number] x5 ADDENDUM ADDENDUM ADDENDUM ADDENDUM ADDENDUM 03/11/2021 14:21 ADDENDUM 03/11/2021 14:21 ADDENDUM 03/11/2021 14:21 ADDENDUM 03/11/2021 14:21 ADDENDUM 03/11/2021 14:21 [place] red stains with matched controls are negative in section of gastric biopsies (specimens A & C) and colon biopsy (specimen F). AM:rg 03/11/2021
--- NOTE | 2021-01-08 07:30 | HP.PCM_ITS ---
History and Physical Date of Admission: 01/08/21 HPI Details: VAIBHAV SOTO, is a 45 M who presents to the office today for evaluation of abdominal pain. He also diagnosed with colon cancer. He has been having symptoms of increased fullness associated with cramping in his abdomen. On blood work he was discovered to have a hemoglobin of 12.7. He has not seen any blood in the stool. He was started on his omeprazole therapy for worsening GERD. That helped a little bit but did not take away his cramping abdominal pain. For the last few months he gets bloated and tight in his abdomen without triggers noted. ABD xray performed and resulted with increased amount of stool. Stool softeners attempted and promoted BM. Has difficulty with diarrhea and constipation alternating normal BM is a loose stool with periods of constipation that he treats with a laxative. Last week he noticed blood in his stool for 5-6 days and this is the first occurrence. Also having difficulty with reflux occurring a couple times a week and feels this is likely related to diet and smokeless tobacco. Barium swallow performed with results of hiatal hernia. ROS Const Constitutional: Positive for fatigue and weight change ENT ENT: Positive for hearing loss and tinnitus Gastro GI: Positive for abdominal pain, bloating, change in bowel habits, constipation, diarrhea, heartburn, Blood in stool and nausea/dyspepsia Musc Musculoskeletal: Positive for joint pain, back pain, muscle weakness, numbness, stiffness, tingling and restless legs Skin Skin: Positive for dry skin, itchy eyes and rash Neuro Neurology: Positive for numbness, tingling and restless legs Endo Endocrine: Positive for fatigue and weight change Aller/Imm Allergy/Immunologic: Positive for itchy eyes Exam Const General: cooperative and comfortable Nutritional Appearance: average body habitus and well nourished [facility] Head: normal to inspection Ears: hearing grossly normal bilaterally Nose: external nose normal Face and sinus: normal facial exam Mouth: oral mucosae normal Throat: posterior oropharynx normal Eyes General: appearance normal, both eyes and all related structures Neck Neck: normal visual inspection Chest Chest palpation & inspection: normal inspection of the chest and normal palpation of entire chest wall Resp Effort & Inspection: normal respiratory effort Auscultation: Bilateral: Clear to Auscultation Cardio Palpation: normal PMI Rate: regular rate Rhythm: regular rhythm GI Inspection: normal to inspection Auscultation: normal bowel sounds Percussion: normal to percussion Palpation: no hepatosplenomegaly Skin General: no rashes or lesions noted Neuro General: patient alert Extrem General: normal to inspection Psych Affect: normal affect Quality Reporting Tobacco Screening ([facility] 138) Smoking Status: Current some day smoker Assessment and Plan Assessment and Plan (1) Anemia: Status: Acute Plan - Dr. Ernesto Gaspar, DO: Differential diagnosis in a man would be iron deficiency anemia from peptic ulcer disease. He does not have any chronic inflammatory disease in the stomach] anemia chronic disease. He does not have the appearance of cellulitis that would be B12 or folic acid deficiency. He should undergo evaluation of the stomach for H. pylori and peptic ulcer disease. We will also evaluate the small bowel for celiac sprue which can also cause anemia. (2) Change in bowel habits: Status: Acute Plan - Dr. Ernesto Gaspar, DO: In the setting of anemia and change in bowel habits he should have his colon evaluated for abnormality in his colon. (3) Bloating: Status: Acute Plan - Dr. Ernesto Gaspar, DO: His bloating is likely secondary to bacterial overgrowth. I will be diagnosis of exclusion or we need to do labs or breath test. I have re-examined the patient. There are no clinical changes since date of exam.
--- NOTE | 2021-01-08 07:55 | OP.EGD_ITS ---
Patient Name: Fredo Hammond Procedure Date: 01/08/2021 7:32 AM Date of : 1975 Age: 45 Procedure: Upper GI endoscopy Indications: Heartburn, Esophageal reflux Providers: Ernesto Gaspar DO Referring MD: David Montoya Medicines: See the Anesthesia note for documentation of the administered medications Patient Profile: This is a 45 year old male. Refer to note in patient chart for documentation of history and physical. Patient has symptoms of chronic abdominal distention and chronic heartburn. Complications: No immediate complications. Procedure: Pre-Anesthesia Assessment: - Prior to the procedure, a History and Physical was performed, and patient medications and allergies were reviewed. The risks and benefits of the procedure and the sedation options and risks were discussed with the patient. All questions were answered and informed consent was obtained. Patient identification and proposed procedure were verified by the physician in the pre-procedure area. Mental Status Examination: alert and oriented. Airway Examination: normal oropharyngeal airway and neck mobility. Respiratory Examination: clear to auscultation. CV Examination: normal. Prophylactic Antibiotics: The patient does not require prophylactic antibiotics. Prior Anticoagulants: The patient has taken no previous anticoagulant or antiplatelet agents. After reviewing the risks and benefits, the patient was deemed in satisfactory condition to undergo the procedure. The anesthesia plan was to use moderate sedation / analgesia (conscious sedation). Immediately prior to administration of medications, the patient was re-assessed for adequacy to receive sedatives. The heart rate, respiratory rate, oxygen saturations, blood pressure, adequacy of pulmonary ventilation, and response to care were monitored throughout the procedure. The physical status of the patient was re-assessed after the procedure. After obtaining informed consent, the endoscope was passed under direct vision. Throughout the procedure, the patient's blood pressure, pulse, and oxygen saturations were monitored continuously. The Endoscope was introduced through the mouth, and advanced to the second part of duodenum. The upper GI endoscopy was accomplished without difficulty. The patient tolerated the procedure well. Moderate Sedation: Moderate (conscious) sedation was administered by the endoscopy nurse and supervised by the endoscopist. The following parameters were monitored: oxygen saturation, heart rate, blood pressure, and response to care. Total physician intraservice time was 15 minutes. Scope In: 7:44:26 AM Scope Out: 7:50:26 AM Total Procedure Duration Time 0 hours 6 minutes 0 seconds Findings: LA Grade A (one or more mucosal breaks less than 5 mm, not extending between tops of 2 mucosal folds) esophagitis with no bleeding was found 34 to 35 cm from the incisors. Biopsies were taken with a cold forceps for histology. Verification of patient identification for the specimen was done. Estimated blood loss was minimal. A medium-sized hiatal hernia was present. Localized mild inflammation characterized by erosions and erythema was found in the gastric body. Biopsies were taken with a cold forceps for histology. Verification of patient identification for the specimen was done. Estimated blood loss was minimal. Mild inflammation characterized by congestion (edema) was found at the pylorus. Biopsies were taken with a cold forceps for histology. Verification of patient identification for the specimen was done. Estimated blood loss was minimal. Localized mild inflammation characterized by congestion (edema) was found in the duodenal bulb. Biopsies were taken with a cold forceps for histology. Verification of patient identification for the specimen was done. Estimated blood loss was minimal. Impression: - LA Grade A reflux esophagitis. Rule out Newton's esophagus. Biopsied. - Medium-sized hiatal hernia. - Gastritis. Biopsied. - Mucosal changes suspicious for gastritis. Biopsied. - Duodenitis. Biopsied. Recommendation: - Discharge patient to home. - Resume previous diet. - Continue present medications. - Await pathology results. - Repeat upper endoscopy in 1 year for surveillance. - Return to GI office in 2 weeks. Procedure Code(s): --- Professional --- 70788, Esophagogastroduodenoscopy, flexible, transoral; with biopsy, single or multiple G0500, Moderate sedation services provided by the same physician or other qualified health coronary care unit nurse performing a gastrointestinal endoscopic service that sedation supports, requiring the presence of an independent trained observer to assist in the monitoring of the patient's level of consciousness and physiological status; initial 15 minutes of intra-service time; patient age 5 years or older (additional time may be reported with 73940, as appropriate) CPT copyright 2017 [employer]. All rights reserved. The codes documented in this report are preliminary and upon manager country review may be revised to meet current compliance requirements. Ernesto Gaspar DO 01/08/2021 7:54:38 AM This report has been signed electronically. Number of Addenda: 1 Note Initiated On: 01/08/2021 7:32 AM Addendum Number: 1 Addendum Date: 10/23/2021 6:26:10 AM MAC was used instead of moderate sedation for this patient. Ernesto Gaspar DO 10/23/2021 6:26:17 AM This report has been signed electronically.
--- NOTE | 2021-01-08 07:56 | OP.CCLET_ITS ---
10/23/2021 David Montoya [address] [place] [address] Re : Upper GI endoscopy procedure for Fredo Hammond Dear Dr. Montoya This procedure was performed on December. My impressions and recommendations are as follows: Impressions : - LA Grade A reflux esophagitis. Rule out Newton's esophagus. Biopsied. - Medium-sized hiatal hernia. - Gastritis. Biopsied. - Mucosal changes suspicious for gastritis. Biopsied. - Duodenitis. Biopsied. Recommendations : - Discharge patient to home. - Resume previous diet. - Continue present medications. - Await pathology results. - Repeat upper endoscopy in 1 year for surveillance. - Return to GI office in 2 weeks. My findings are described in the full procedure note, which is enclosed. If I can be of further assistance, please feel free to contact me at . Sincerely, Ernesto Gaspar, 01/08/2021 7:54:38 AM This report has been signed electronically.
--- NOTE | 2021-01-08 08:19 | OP.COLON_ITS ---
Patient Name: Fredo Hammond Procedure Date: 01/08/2021 7:53 AM Date of : 1975 Age: 45 Procedure: Colonoscopy Indications: Clinically significant diarrhea of unexplained origin, Generalized abdominal pain, Change in bowel habits, Obstipation Providers: Ernesto Gaspar DO Referring MD: David Montoya Medicines: See the Anesthesia note for documentation of the administered medications Patient Profile: This is a 45 year old male. Refer to note in patient chart for documentation of history and physical. Patient has symptoms of chronic abdominal distention and chronic heartburn. Last Colonoscopy: none. The patient's first colonoscopy is today. Complications: No immediate complications. Procedure: Pre-Anesthesia Assessment: - Prior to the procedure, a History and Physical was performed, and patient medications and allergies were reviewed. The risks and benefits of the procedure and the sedation options and risks were discussed with the patient. All questions were answered and informed consent was obtained. Patient identification and proposed procedure were verified by the physician in the pre-procedure area. Mental Status Examination: alert and oriented. Airway Examination: normal oropharyngeal airway and neck mobility. Respiratory Examination: clear to auscultation. CV Examination: normal. Prophylactic Antibiotics: The patient does not require prophylactic antibiotics. Prior Anticoagulants: The patient has taken no previous anticoagulant or antiplatelet agents. After reviewing the risks and benefits, the patient was deemed in satisfactory condition to undergo the procedure. The anesthesia plan was to use moderate sedation / analgesia (conscious sedation). Immediately prior to administration of medications, the patient was re-assessed for adequacy to receive sedatives. The heart rate, respiratory rate, oxygen saturations, blood pressure, adequacy of pulmonary ventilation, and response to care were monitored throughout the procedure. The physical status of the patient was re-assessed after the procedure. After I obtained informed consent, the scope was passed under direct vision. Throughout the procedure, the patient's blood pressure, pulse, and oxygen saturations were monitored continuously. The Colonoscope was introduced through the anus and advanced to the cecum, identified by the appendiceal orifice, IC valve and transillumination. The colonoscopy was performed without difficulty. The patient tolerated the procedure well. The quality of the bowel preparation was good. Moderate Sedation: Moderate (conscious) sedation was administered by the endoscopy nurse and supervised by the endoscopist. The patient's oxygen saturation, heart rate, blood pressure and response to care were monitored. Total physician intraservice time was 15 minutes. Scope In: 7:57:02 AM Scope Withdrawal Time 0 hours 12 minutes 53 seconds Scope Out: 8:13:50 AM Total Procedure Duration Time 0 hours 16 minutes 48 seconds Findings: The perianal and digital rectal examinations were normal. An area of mildly congested mucosa was found in the sigmoid colon. Biopsies were taken with a cold forceps for histology. Verification of patient identification for the specimen was done. Estimated blood loss was minimal. A scattered area of the distal ileum was congested. Biopsies were taken with a cold forceps for histology. Verification of patient identification for the specimen was done. Estimated blood loss was minimal. A few small-mouthed diverticula were found in the sigmoid colon and descending colon. There was no evidence of diverticular bleeding. Impression: - Congested mucosa in the sigmoid colon. Biopsied. - Congested mucosa in the distal ileum. Biopsied. - Mild diverticulosis in the sigmoid colon and in the descending colon. There was no evidence of diverticular bleeding. Recommendation: - Discharge patient to home. - Resume previous diet. - Continue present medications. - Await pathology results. - Repeat colonoscopy in 5 years for surveillance based on pathology results. - Return to GI office in 2 weeks. Procedure Code(s): --- Professional --- 51119, Colonoscopy, flexible; with biopsy, single or multiple G0500, Moderate sedation services provided by the same physician or other qualified health child day care provider performing a gastrointestinal endoscopic service that sedation supports, requiring the presence of an independent trained observer to assist in the monitoring of the patient's level of consciousness and physiological status; initial 15 minutes of intra-service time; patient age 5 years or older (additional time may be reported with 33408, as appropriate) CPT copyright 2017 [employer]. All rights reserved. The codes documented in this report are preliminary and upon ticket marker review may be revised to meet current compliance requirements. Ernesto Gaspar DO 01/08/2021 8:18:50 AM This report has been signed electronically. Number of Addenda: 1 Note Initiated On: 01/08/2021 7:53 AM Addendum Number: 1 Addendum Date: 10/23/2021 6:26:27 AM MAC was used instead of moderate sedation for this patient. Ernesto Gaspar DO 10/23/2021 6:26:32 AM This report has been signed electronically.
--- NOTE | 2021-01-08 08:20 | OP.CCLET_ITS ---
10/23/2021 David Montoya [address] [place] [address] Re : Colonoscopy procedure for Fredoangel Hammodn Dear Dr. Montoya This procedure was performed on December. My impressions and recommendations are as follows: Impressions : - Congested mucosa in the sigmoid colon. Biopsied. - Congested mucosa in the distal ileum. Biopsied. - Mild diverticulosis in the sigmoid colon and in the descending colon. There was no evidence of diverticular bleeding. Recommendations : - Discharge patient to home. - Resume previous diet. - Continue present medications. - Await pathology results. - Repeat colonoscopy in 5 years for surveillance based on pathology results. - Return to GI office in 2 weeks. My findings are described in the full procedure note, which is enclosed. If I can be of further assistance, please feel free to contact me at . Sincerely, Ernesto Gaspar, 01/08/2021 8:18:50 AM This report has been signed electronically.
== END 2021-01-08 09:06 | disposition home or self-care (01) ==
LOC: EN 06:31 → AC 06:32
PROVIDERS: PCP Family Medicine; Referring Provider Family Medicine; Visit Provider Internal Medicine Gastroenterology
PROC: 0DJD8ZZ Inspection of Lower Intestinal Tract, Via Natural or Artificial Opening Endoscopic (ICD-10-PCS; CPT 45378; principal; 2021-01-08 07:25)
DX: K29.50 Unspecified chronic gastritis without bleeding (principal); K29.80 Duodenitis without bleeding; K57.30 Diverticulosis of large intestine without perforation or abscess without bleeding; K21.00 Gastro-esophageal reflux disease with esophagitis, without bleeding; K44.9 Diaphragmatic hernia without obstruction or gangrene; D64.9 Anemia, unspecified; K59.00 Constipation, unspecified; Z20.822 Contact with and (suspected) exposure to COVID-19; H91.90 Unspecified hearing loss, unspecified ear; G47.30 Sleep apnea, unspecified; F17.220 Nicotine dependence, chewing tobacco, uncomplicated; F17.200 Nicotine dependence, unspecified, uncomplicated; Z79.899 Other long term (current) drug therapy
CPT/HCPCS: 43239; 45380; 87426; 88305; 88313; 88341; 88342; J7120; A4216; J2405

== ENCOUNTER → 2021-01-22 14:31 | Outpatient (CLI) | payer BC, SELFPAY ==
[2021-01-22 14:54] LABS: Erythrocyte Sedimentation Rate 61 mm/hr (0-20)
[2021-01-22 15:06] LABS: CRP 3.07 mg/L (0.0-3.0)
[2021-01-27 20:08] LABS: Cytoplasmic Ab (C-ANCA) <1:20 titer (Neg:<1:20); Endomysial Antibody IgA Negative (Negative)
[2021-01-28 05:07] LABS: Beef <0.10 kU/L (Class 0); Clam <0.10 kU/L (Class 0); Codfish <0.10 kU/L (Class 0); Corn <0.10 kU/L (Class 0); Egg, White <0.10 kU/L (Class 0); Egg, Whole <0.10 kU/L (Class 0); Milk (Cow) <0.10 kU/L (Class 0); Peanut <0.10 kU/L (Class 0); Pork <0.10 kU/L (Class 0); SCALLOP <0.10 kU/L (Class 0); SESAME SEED <0.10 kU/L (Class 0); Shrimp <0.10 kU/L (Class 0); Soybean <0.10 kU/L (Class 0); Walnut, (Food) <0.10 kU/L (Class 0); Wheat <0.10 kU/L (Class 0)
[2021-01-28 09:32] LABS: Chocolate <0.10 kU/L (Class 0)
[2021-01-28 09:33] LABS: Immunoglobulin A 1630 mg/dL (90-386); Immunoglobulin E 42 IU/mL (6-495); Perinuclear Ab (P-ANCA) <1:20 titer (Neg:<1:20); t-Transglutaminase IgA <2 U/mL (0-3)
== END ==
PROVIDERS: PCP Family Medicine; Visit Provider Internal Medicine Gastroenterology
DX: R14.0 Abdominal distension (gaseous) (principal)
CPT/HCPCS: 36415; 82784; 82785; 83516; 85652; 86003; 86005; 86140; 86255; 86256

== ENCOUNTER 2021-02-26 08:51 | Outpatient (CLI) | payer BC, SELFPAY ==
--- NOTE | 2021-02-26 08:53 | RAD_ITS ---
STUDY: X-RAY BONE SURVEY COMPLETE REASON FOR EXAM: Male, 46 years old. R/O MYELOMA TECHNIQUE: One view of the pelvis was obtained. views of the cervical spine were obtained. views of the thoracic spine were obtained. views of the lumbar spine were obtained. views of the femur. views of the humerus. : views of the skull were obtained. COMPARISON: None. FINDINGS: CHEST: The lungs are clear and expanded. There is no demonstrated pleural abnormality. Normal size heart. Normal mediastinum and flavia. Normal visualized pulmonary arteries. Normal visualized aortic arch and descending thoracic aorta. Normal visualized thoracic spine. Normal visualized ribs, clavicles, and shoulders. There is no demonstrated abnormality of the visualized soft tissue structures of the upper abdomen. PELVIS: There is a non-specific bowel gas pattern. Normal visualized soft tissue structures. Normal bilateral iliac wings, sacroiliac joints and visualized sacrum. Normal visualized bilateral superior and inferior pubic rami. Normal pubic symphysis. Normal ischial tuberosities. Normal visualized right femoral head. Normal right acetabulum. Normal right hip joint. Normal visualized left femoral head. Normal left acetabulum. Normal left hip joint. CERVICAL SPINE: Normal anterior atlantoaxial articulation. Normal odontoid process. Normal cervical lordosis. Normal vertebral bodies and endplates. Normal disc space heights. Normal visualized intervertebral neuroforamina. The soft tissue structures are unremarkable. THORACIC SPINE: Normal kyphosis of the thoracic spine. There is no substantial scoliosis. Normal thoracic vertebrae and endplates. Normal disc space heights. The soft tissue structures are unremarkable. LUMBAR SPINE: Normal lumbar lordosis. There is no substantial scoliosis. There is a normal alignment of the vertebrae. Normal vertebral bodies and endplates. Normal disc space heights. The soft tissue structures are unremarkable. RIGHT FEMUR: Normal visualized femur. Normal visualized soft tissue structure. LEFT FEMUR: Normal visualized femur. Normal visualized soft tissue structure. RIGHT HUMERUS :Normal visualized humerus. There is no demonstrated fracture or osseous destructive process. Prior rotator cuff surgery. There is no demonstrated soft tissue abnormality. LEFT HUMERUS:Normal visualized humerus. There is no demonstrated fracture or osseous destructive process. There is no demonstrated soft tissue abnormality. SKULL: There is no demonstrated soft tissue swelling. Normal osseous calvarium. Normal visualized facial bones. Normal visualized paranasal sinuses. RAD/Bone Survey Comp(Axial&Append) IMPRESSION: No sclerotic or lytic lesion is seen. Electronically Signed: Immanuel Sauer MD at 13:12 EST , Service support ,
== END 2021-02-26 23:59 | disposition short-term general hospital (02) ==
LOC: RAD 08:52
PROVIDERS: PCP Family Medicine; Referring Provider Internal Medicine Hematology & Oncology; Visit Provider Internal Medicine Hematology & Oncology
DX: D47.2 Monoclonal gammopathy (principal); R76.8 Other specified abnormal immunological findings in serum
CPT/HCPCS: 77075

== ENCOUNTER 2021-03-24 06:27 | Outpatient (CLI) | payer BC, SELFPAY ==
--- NOTE | 2021-03-24 06:28 | MRI_ITS ---
STUDY: MRI LUMBAR SPINE WITH AND WITHOUT CONTRAST REASON FOR EXAM: Male, 46 years old. MYELOMA AND DJD - FURTHER EVALUATION -- ATTN: [id number] LUMBOSACRAL TECHNIQUE: Standardized fat and water weighted pulse sequences were obtained in the sagittal and axial planes. IV 26ml Dotarem was administered for the contrast portion of the examination. COMPARISON: 03/28/2019 FINDINGS: T12-L1: Normal endplates. Normal disc height, hydration and morphology. Normal bilateral facet joints. Normal central canal and bilateral lateral recesses. Normal bilateral intervertebral neural foramina. Normal lumbar lordosis. There is no substantial scoliosis. Normal conus medullaris that terminates at the T12. L1-2: Normal endplates. Normal disc height, hydration and morphology. Normal bilateral facet joints. Normal central canal and bilateral lateral recesses. Normal bilateral intervertebral neural foramina. L2-3: Normal endplates. Normal disc height, hydration and morphology. Normal bilateral facet joints. Normal central canal and bilateral lateral recesses. Normal bilateral intervertebral neural foramina. L3-4: No change in the mild broad disc protrusion which produces mild spinal stenosis and mild bilateral neural foraminal stenosis. L4-5: Mild bilateral facet hypertrophy and moderate ligament flavum hypertrophy. Some disc desiccation but no disc protrusion, spinal stenosis, or neural foraminal stenosis. L5-S1: No change in mild broad disc protrusion with a central annular tear which produces mild spinal stenosis and mild bilateral neural foraminal stenosis. Normal visualized sacral ala. Mild friction related edema in the posterior subcutaneous fat. MRI/Spine Lumbar W/WO Contrast IMPRESSION: No change from 03/28/2019 Electronically Signed: Mekhi Nolasco MD at 17:31 EST ,
--- NOTE | 2021-03-24 06:28 | MRI_ITS ---
STUDY: MRI THORACIC SPINE WITH AND WITHOUT CONTRAST REASON FOR EXAM: Male, 46 years old. MYELOMA AND DJD - FURTHER EVALUATION -- ATTN: [id number] TECHNIQUE: 26ML IV DOTAREM was administered for the contrast portion of the examination. COMPARISON: None. FINDINGS: Normal kyphosis of the thoracic spine. There is no substantial scoliosis. T1-2, T2-3, T3-4, T4-5, T5-6, T6-7, T7-8, T8-9, T9-10, T10-11, T11-12: At T5/T6, there is a small central disc protrusion producing mild spinal stenosis but no cord compression. At T6/T7, there is a small central disc protrusion results in mild spinal stenosis but no cord compression. At T7/T8, there is a mild bilobed disc protrusion which produces mild spinal stenosis but no cord compression. At T8/T9 there is a small central disc protrusion which produces mild spinal stenosis but no cord compression. At T9/T10 there is a small left paracentral disc protrusion which produces mild spinal stenosis but no neural foraminal stenosis. At T11/T12 there is a small central disc protrusion which produces mild spinal stenosis but no cord compression. At T12/L1, there is a small right paracentral disc protrusion which produces mild spinal stenosis but no neural foraminal stenosis. Normal visualized thoracic cord. Normal conus medullaris that terminates at the T12. The soft tissue structures are unremarkable. There is no enhancing abnormality. MRI/Spine Thoracic W/WO Contrast IMPRESSION: Mild degenerative disc disease but no cord compression. Electronically Signed: Mekhi Nolasco MD at 17:24 EST ,
[2021-03-24 06:50] LABS: CREATININE FINGERSTICK 1.1 mg/dL (0.70-1.30); EGFR FINGERSTICK > 60.0000 mL/min (>60)
== END 2021-03-24 23:59 | disposition short-term general hospital (02) ==
PROVIDERS: PCP Family Medicine; Referring Provider Internal Medicine Hematology & Oncology; Visit Provider Internal Medicine Hematology & Oncology
DX: C90.00 Multiple myeloma not having achieved remission (principal); M19.90 Unspecified osteoarthritis, unspecified site
CPT/HCPCS: 72157; 72158; A9575

== ENCOUNTER 2021-04-02 07:02 | Outpatient (CLI) | payer BC, SELFPAY ==
[2021-04-06 15:08] LABS: Alpha-1-Globulin, Ur 1.8 % (.); Alpha-2-Globulins, Ur 18.1 % (.); Beta Globulin, Ur 40.5 % (.); Gamma Globulin, Ur 20.6 % (.); Protein, 24Ur 349 mg/24 hr (30-150); Total Protein, Ur 20.5 mg/dL (Not Estab.)
[2021-04-06 20:43] LABS: M-Spike, Ur % Comment: % (Not Observed)
== END 2021-04-02 23:59 | disposition home or self-care (01) ==
LOC: LABSPEC 07:03
PROVIDERS: PCP Family Medicine; Referring Provider Internal Medicine Hematology & Oncology; Visit Provider Internal Medicine Hematology & Oncology
DX: C90.00 Multiple myeloma not having achieved remission (principal)
CPT/HCPCS: 81050; 84166; 86335

== ENCOUNTER → 2021-09-01 | Outpatient (CLI) | payer BC, SELFPAY ==
[2021-09-01 17:24] LABS: ALB/GLOB Ratio 0.9 RATIO (0.9-2.4); AST(SGOT) 33 U/L (15-37); Alanine Aminotransfer ALT/SGPT 68 U/L (16-61); Albumin, Serum 3.6 g/dL (3.2-5.0); Alkaline Phosphatase 71 U/L (45-117); Anion Gap 6 (5-15); BUN 14 mg/dL (7-18); BUN/Creat Ratio 9.8 RATIO (10-20); Calcium,Total 9.2 mg/dL (8.5-10.1); Chloride 103 mmol/L (98-107); Creatinine, Serum 1.43 mg/dL (0.70-1.30); EST Glomerular Filtration Rate 57 mL/min (>60); Est Glom Filt Rate - Afr Amer 69 mL/min (>60); Globulin 4.2 g/dL (2.2-4.2); Glucose 90 mg/dL (74-106); Magnesium 2.5 mg/dL (1.6-2.6); Phosphorus 3.6 mg/dL (2.5-4.9); Protein, Total 7.8 g/dL (6.4-8.2); Sodium Level 139 mmol/L (136-145)
== END | disposition home or self-care (01) ==
LOC: LAB 14:59
PROVIDERS: PCP Family Medicine; Referring Provider Internal Medicine Hematology & Oncology; Visit Provider Internal Medicine Hematology & Oncology
DX: C90.00 Multiple myeloma not having achieved remission (principal)
CPT/HCPCS: 36415; 80053; 83735; 84100

== ENCOUNTER → 2021-09-02 | Outpatient (CLI) | payer BC, SELFPAY ==
[2021-09-02 10:37] LABS: Bacteria 0 SEEN /hpf (None Seen); Mucous, Urine 0 SEEN /hpf (<or=2+); Red Blood Cells-Urine 0 SEEN /hpf (0-5); Squamous Epithelial Cells - UA 0 SEEN /hpf (0-5); White Blood Cells 0 SEEN /hpf (0-5)
[2021-09-02 12:37] LABS: Color, Urine Yellow (Yellow); Glucose, Dipstick Normal (Normal); Ketone-Dipstick Negative (Negative); Leukocyte Esterase-Dipstick Negative /ul (Negative); Nitrite-Dipstick Negative (Negative); Occult Blood-Urine Negative /ul (Negative); Protein-Dipstick Negative (Negative); Urine Bilirubin Dipstick Negative (Negative); Urine Clarity Clear (Clear); Urine Urobilinogen Normal (Normal)
[2021-09-04 12:08] LABS: Albumin, Ur 20.7 % (.); Alpha-1-Globulin, Ur 5.3 % (.); Alpha-2-Globulins, Ur 23.9 % (.); Beta Globulin, Ur 30.3 % (.); Gamma Globulin, Ur 19.8 % (.); Protein, 24Ur 545 mg/24 hr (30-150)
[2021-09-04 13:04] LABS: M-Spike, Ur % Comment: % (Not Observed)
== END | disposition home or self-care (01) ==
LOC: POLAB3 10:35
PROVIDERS: Internal Medicine Hematology & Oncology; PCP Family Medicine; Visit Provider Family Medicine
DX: C90.00 Multiple myeloma not having achieved remission (principal); N17.9 Acute kidney failure, unspecified; R76.8 Other specified abnormal immunological findings in serum
CPT/HCPCS: 81001; 81050; 84166; 86335

== ENCOUNTER → 2021-09-30 | Outpatient (CLI) | payer BC, SELFPAY ==
[2021-09-30] VITALS (12 sets, daily range): BP systolic 128–159; BP diastolic 63–112; PULSE 52–59; RESP 11–93; TEMP 36.6; O2SAT 11–100; BMI 44.1
--- NOTE | 2021-09-30 | KI_PTH ---
PATIENT: VAIBHAV SOTO LOC: CT U#:[id number] AGE/SX: 46/M ROOM: RE09/30/[address]: Dr. Татьяна Fuller DO : 1975 BED: DIS: 09/30/2021 SPEC #: [id number] RECD: 09/30/21 09:42 STATUS: TRICIA JULIUS #: [id number] LUCY: 09/30/21 00:[address]: Татьяна Fuller DEPT: SURGICAL PATHOLOGY RECD BY: Shala Loredo ENTERED: 09/30/21 09:46 SP TYPE: KIDNEY BX OTHR DR: Dr. Hoang Montoya MD Tissues: Kidney, NOS Procedures: Electron Microscopy (ACH) Fluorescent Antibody (ACH) Sp St Grp II Kidney (ACH) Kidney Biopsy (ACH) Fluorescent antibody (ACH) add'l HEADER OPERATION: CT-guided right kidney biopsy PRE-OP DIAGNOSIS: Renal failure TISSUE SUBMITTED: Kidney 18-gauge x4 MICROSCOPIC DIAGNOSIS Right kidney, CT-guided biopsies: Minimal glomerular changes. Variable basement membrane thickening/hypertensive changes. Tubule kappa-restricted granular signal. Podocyte foot process fusion and hypertrophic changes. No evidence of interstitial fibrosis. See comment. IMMUNOFLUORESCENCE Tissue frozen and submitted for immunofluorescence evaluation yields 5 glomeruli. IgA shows mild 1+ glomerular signal and shows weak signal in tubules. Stuckey shows 1+ granular signal in the tubules. By contrast, lambda is essentially negative, C3 shows weak sparse granular signal in tubules; otherwise essentially negative. There is background glomerular and cortex signal with IgG and albumin. IgM, C1q, and fibrin are negative, Positive and negative immunofluorescence controls are reviewed and deemed adequate. ELECTRON MICROSCOPY Toluidine blue semithin sections demonstrate a single open glomerulus. Ultrastructure examination demonstrates minimal glomerular mesangial matric expansion. The basement membranes show mild variable convolution changes and mild evidence of thickening. There is no evidence of basement membrane or mesangial deposits. The podocyte foot processes show flattening and fusion, hypertrophic changes, and borderline microvillous changes. There is no evidence of light chain deposition in the tubules. COMMENT Correlate clinically with history and onset of symptoms. Correlate with myeloma work-up. Case reviewed with Dr. Larkin who concurs. Cannot entirely rule out early light chain deposition disease as glomerular morphology is essentially unremarkable and non-specific. No evidence of definitive deposition at this time. There is a variable podocytopathy present. No evidence of significant chronic glomerular or interstitial changes. There are variable vascular hypertensive changes. MICROSCOPIC DESCRIPTION Light microscopy examined with H&E, PAS, Bassett silver, Congo red, and trichrome stains yields adequate renal cortex for evaluation showing 44 glomeruli. The glomeruli show open capillary loops. There is no evidence of significant glomerular inflammation, sclerosis, nodularity, or crescent formation. The interstitium shows no significant inflammation or fibrosis; with no evidence of fibrosis with trichrome stain. The tubules show minimal tubule injury with no evidence of tubule atrophy. Evaluation of the vessels/arterioles shows mild variable intimal thickening. There is no evidence of vasculitis. Congo red stain shows no evidence of significant amyloid deposition or accumulation. There is focal renal capsule and renal medulla. Special stain positive controls are reviewed and deemed adequate. GROSS DESCRIPTION The specimen is sent entirely to [facility] for diagnosis. Per [facility] received in polytransport medium in a container labeled with the patients name, medical record number, and designation right kidney are 4 cores of parr renal tissue measuring 1.7, 1.4, 1.4, and 0.5 cm in length; by approximately 0.1 cm in width. Numerous glomeruli are seen under the dissecting microscope. The specimen is divided for light microscopy, immunofluorescence, and electron microscopy,
--- NOTE | 2021-09-30 08:17 | CT_ITS ---
PROCEDURE: CT GUIDED PERCUTANEOUS KIDNEY BIOPSY. DATE: 09/30/2021. INDICATION: Male, 46 years old. Renal failure. PHYSICIAN: Immanuel Sauer M.D. MEDICATIONS: 2 mg of VERSED and 50 mcg of FENTANYL. ACCESS SITE: Lower pole of the right kidney. NEEDLE: 18-gauge core biopsy needle SPECIMEN: 4 18-gauge cores EBL: None. COMPLICATIONS: None immediate. RADIATION DOSAGE (If Supplied By Facility): CTDIvol = ( 27 ) mGy, DLP = ( 787.44 ) mGycm. Individualized dose optimization techniques were utilized. The risks, benefits, and alternatives to the procedure and sedation were explained to the patient. The specific risk of hemorrhage requiring further treatment or intervention was detailed and accepted. Written informed consent was obtained. Conscious sedation was performed. Conscious sedation was started at 9:11 AM and terminated at 9:28 AM. The patient was independently monitored by the department nurse. The patient was placed on the CT table in the prone position. Multiple axial images were obtained from the lung base through the caudal extent of the kidneys. An appropriate entry site was identified and a manisha made on the skin. The skin overlying the [ right] posterior flank was prepped and draped in sterile fashion. 1% lidocaine was administered subcutaneously for local anesthesia. A 17 gauge introducer needle which was advanced. Repeat CT images confirmed good needle trajectory and tip position. The introducer needle was then advanced into the periphery of the inferior renal pole, and CT images were again obtained to confirm exact tip location. The inner stylet of the introducer needle was then removed and an 18 gauge coaxial needle was advanced thru the introducer needle and biopsy performed. A total of [4] passes were performed and the specimen collected was sent to Pathology for further evaluation. The needle was withdrawn. Hemostasis was achieved with manual compression and a sterile dressing was applied. Repeat CT images of the biopsy area was performed which demonstrated no gross bleeding or hematoma. The patient tolerated the procedure well without immediate complications. The patient was transported to the [floor/recovery area] in stable condition. Conscious sedation protocol was followed. CT/Biopsy/Inj or Needle Placement IMPRESSION: Successful CT guided percutaneous right kidney biopsy. Electronically Signed: Immanuel Sauer MD at 9:52 EDT ,
[2021-09-30 08:21] LABS: Hematocrit 38.8 % (40-54); Hemoglobin 12.6 g/dL (13.0-16.5); Mean Corp Hgb Conc 32.5 g/dL (32-36); Mean Corpuscular Hgb 28.7 pg (27.0-32.0); Mean Corpuscular Volume 88.4 fL (80-94); Mean Platelet Vol. 8.5 fl (6.2-12.0); Platelet Count 276 K/mm3 (150-450); RBC Distribution Width CV 12.7 % (11.6-14.6); RBC Distribution Width SD 41.3 fl (35.1-43.9); Red Blood Count 4.39 M/mm3 (4.6-6.2); White Blood Count 6.7 K/mm3 (4.4-11.0)
[2021-09-30 08:54] LABS: Prothrombin Time (Protime)PT. 13.2 SECONDS (11.7-14.9)
[2021-09-30 08:55] LABS: Partial Thromboplast Time 28.2 Seconds (24.1-36.2)
[2021-09-30] MEDS: 0.9% Normal Saline 250 ML IV.SOLN. IV (09:11)
[2021-09-30] MEDS: Midazolam 2 MG/2 ML Syringe IV ×2 (09:12→09:20)
[2021-09-30] MEDS: fentaNYL 100 MCG/2 ML Ampul IV (09:13)
[2021-09-30] MEDS: Lidocaine 2% (10 ml mdv) 10 ML Vial INFILT (09:59)
== END | disposition home or self-care (01) ==
LOC: CT 08:05
PROVIDERS: PCP Family Medicine; Referring Provider Internal Medicine Nephrology; Visit Provider Internal Medicine Nephrology
DX: N17.9 Acute kidney failure, unspecified (principal); C90.00 Multiple myeloma not having achieved remission; E66.01 Morbid (severe) obesity due to excess calories; I12.9 Hypertensive chronic kidney disease with stage 1 through stage 4 chronic kidney disease, or unspecified chronic kidney disease; N18.9 Chronic kidney disease, unspecified; D64.9 Anemia, unspecified; G47.33 Obstructive sleep apnea (adult) (pediatric); F41.9 Anxiety disorder, unspecified
CPT/HCPCS: 50200; 36415; 77012; 85027; 85610; 85730; 88305; 88313; 88346; 88348; 88350; 99156; J7050; A4216

== ENCOUNTER → 2021-10-14 | Outpatient (CLI) | payer BC, SELFPAY ==
[2021-10-14 12:09] LABS: Absolute Lymphocyte Count 1.92 X10^3/uL (0.83-4.51); Absolute Neutrophil Count 3.2 X10^3/uL (2.0-7.7); Basophil# 0.06 X10^3/uL; Eosinophil# 0.15 X10^3/uL; Eosinophils% 2.5 % (0-5); Hematocrit 37.7 % (40-54); Hemoglobin 12.6 g/dL (13.0-16.5); Lymphocyte # 1.92 X10^3/ul (0.83-4.51); Lymphocyte % 32.1 % (19-41); Mean Corp Hgb Conc 33.4 g/dL (32-36); Mean Corpuscular Hgb 29.2 pg (27.0-32.0); Mean Corpuscular Volume 87.3 fL (80-94); Mean Platelet Vol. 8.6 fl (6.2-12.0); Monocyte# 0.67 X10^3/uL; Monocyte% 11.2 % (0-10); NRBC Flagged by Analyzer 0 % (0-5); Neutrophil # 3.15 X10^3/uL (2.7-7.7); Neutrophil % 52.5 % (47-70); Platelet Count 371 K/mm3 (150-450); RBC Distribution Width CV 12.6 % (11.6-14.6); RBC Distribution Width SD 40.1 fl (35.1-43.9); Red Blood Count 4.32 M/mm3 (4.6-6.2)
[2021-10-14 12:35] LABS: Vitamin B12 519 pg/mL (211-911); Vitamin D,25 Hydroxy 32.7 ng/mL
[2021-10-14 12:51] LABS: ALB/GLOB Ratio 0.7 RATIO (0.9-2.4); AST(SGOT) 24 U/L (15-37); Alanine Aminotransfer ALT/SGPT 53 U/L (16-61); Albumin, Serum 3.3 g/dL (3.2-5.0); Alkaline Phosphatase 68 U/L (45-117); Anion Gap 8 (5-15); BUN 13 mg/dL (7-18); BUN/Creat Ratio 11.6 RATIO (10-20); Calcium,Total 9.1 mg/dL (8.5-10.1); Chloride 103 mmol/L (98-107); Creatinine, Serum 1.12 mg/dL (0.70-1.30); EST Glomerular Filtration Rate 76 mL/min (>60); Est Glom Filt Rate - Afr Amer 91 mL/min (>60); Ferritin 139 ng/mL (26-388); Globulin 4.5 g/dL (2.2-4.2); Glucose 117 mg/dL (74-106); Iron 59 ug/dL (65-175); Potassium 4.1 mmol/L (3.5-5.1); Protein, Total 7.8 g/dL (6.4-8.2); Sodium Level 136 mmol/L (136-145)
== END | disposition home or self-care (01) ==
LOC: MFPLAB 10:20
PROVIDERS: PCP Family Medicine; Referring Provider Family Medicine; Visit Provider Family Medicine
DX: R53.83 Other fatigue (principal)
CPT/HCPCS: 36415; 80053; 82306; 82533; 82607; 82728; 83540; 84403; 84443; 85025

== ENCOUNTER → 2021-12-04 | Outpatient (CLI) | payer BC, SELFPAY | END | disposition home or self-care (01) | LOC: MTLAB 12:34 | PROVIDERS: PCP Family Medicine; Referring Provider Family Medicine; Visit Provider Family Medicine | DX: R79.89 Other specified abnormal findings of blood chemistry (principal) | CPT/HCPCS: 36415; 84403 ==

== ENCOUNTER 2022-01-23 10:46 | Outpatient (CLI) | payer BC, SELFPAY ==
[2022-01-23 11:14] LABS: Absolute Lymphocyte Count 2.19 X10^3/uL (0.83-4.51); Absolute Neutrophil Count 2.2 X10^3/uL (2.0-7.7); Basophil# 0.06 X10^3/uL; Basophil% 1.1 % (0-1); Eosinophil# 0.14 X10^3/uL; Eosinophils% 2.7 % (0-5); Hematocrit 39.7 % (40-54); Hemoglobin 12.9 g/dL (13.0-16.5); Lymphocyte # 2.19 X10^3/ul (0.83-4.51); Lymphocyte % 41.9 % (19-41); Mean Corp Hgb Conc 32.5 g/dL (32-36); Mean Corpuscular Hgb 28.1 pg (27.0-32.0); Mean Corpuscular Volume 86.5 fL (80-94); Mean Platelet Vol. 8.5 fl (6.2-12.0); Monocyte# 0.68 X10^3/uL; NRBC Flagged by Analyzer 0 % (0-5); Neutrophil # 2.15 X10^3/uL (2.7-7.7); Neutrophil % 41.1 % (47-70); Platelet Count 281 K/mm3 (150-450); RBC Distribution Width CV 13.5 % (11.6-14.6); RBC Distribution Width SD 42.5 fl (35.1-43.9); Red Blood Count 4.59 M/mm3 (4.6-6.2); White Blood Count 5.2 K/mm3 (4.4-11.0)
[2022-01-23 11:43] LABS: ALB/GLOB Ratio 0.9 RATIO (0.9-2.4); AST(SGOT) 24 U/L (15-37); Alanine Aminotransfer ALT/SGPT 56 U/L (16-61); Albumin, Serum 3.6 g/dL (3.2-5.0); Alkaline Phosphatase 67 U/L (45-117); Anion Gap 4 (5-15); BUN 10 mg/dL (7-18); BUN/Creat Ratio 9.2 RATIO (10-20); Chloride 107 mmol/L (98-107); Creatinine, Serum 1.09 mg/dL (0.70-1.30); EST Glomerular Filtration Rate 78 mL/min (>60); Est Glom Filt Rate - Afr Amer 94 mL/min (>60); Globulin 3.8 g/dL (2.2-4.2); Glucose 123 mg/dL (74-106); Potassium 4.3 mmol/L (3.5-5.1); Protein, Total 7.4 g/dL (6.4-8.2); Sodium Level 138 mmol/L (136-145)
[2022-01-23 18:52] LABS: Xtra Tube EP Lab EXTRA TUBE
[2022-01-27 00:07] LABS: Albumin 3.8 g/dL (2.9-4.4); Alpha-1-Globulins 0.2 g/dL (0.0-0.4); Alpha-2-Globulins 1.1 g/dL (0.4-1.0); Free Kappa Light Chains 211.1 mg/L (3.3-19.4); Free Lambda Light Chains 8.5 mg/L (5.7-26.3); Gamma Globulin 0.5 g/dL (0.4-1.8); Immunoglobulin G 519 mg/dL (603-1613); PROEL- TOTAL PROTEIN 7.1 g/dL (6.0-8.5)
[2022-01-27 09:29] LABS: Immunoglobulin A 1357 mg/dL (90-386); Immunoglobulin M 13 mg/dL (20-172)
== END 2022-01-23 23:59 | disposition home or self-care (01) ==
LOC: LAB 10:47
PROVIDERS: PCP Family Medicine; Referring Provider Internal Medicine Hematology & Oncology; Visit Provider Internal Medicine Hematology & Oncology
DX: C90.00 Multiple myeloma not having achieved remission (principal)
CPT/HCPCS: 36415; 80053; 82784; 83883; 84165; 85025; 86334

== ENCOUNTER → 2022-02-02 | Outpatient (CLI) | payer BC, SELFPAY ==
--- NOTE | 2022-02-02 06:04 | ECHOCS_ITS ---
Reason For Study: ARRYTHMIA Procedure This was a 2D Doppler, Color Flow transthoracic echocardiogram. The study was technically difficult. Contrast injection was performed. Exam performed in department. Left Ventricle Based upon the 2D echocardiographic and contrast enhanced images obtained there appears to be grossly normal left ventricular size, wall motion, and systolic function. The estimated ejection fraction is 60 %. No evidence for diastolic dysfunction. Right Ventricle Based upon the 2D echocardiographic and contrast enhanced images obtained there appears to be grossly normal right ventricular size and systolic function. Atria The left atrium is mildly enlarged. Normal right atrium. No doppler evidence for ASD. Mitral Valve There is no mitral annular calcification. Normal mitral valve. Trivial mitral valve insufficiency. Tricuspid Valve Normal tricuspid valve. Trivial tricuspid valve insufficiency. Unable to estimate RV systolic pressure/pulmonary artery pressure due to technically difficult study. Aortic Valve Trisinus/trileaflet aortic valve. Mild focal aortic valve calcification. Pulmonic Valve The pulmonic valve is not well visualized. Great Vessels Normal sized aortic root. Pericardium/Pleural No pericardial effusion. Medication Diluted definity 2ml given slow IV push to enhance endocardial definition. MMode/2D Measurements & Calculations Ao root diam: 3.3 cm LAV(MOD-bp): 75.5 ml LA A4 area: 23.3 cm2 LAV(MOD-bp) Indexed: 31.3 ml/m2 LAV(MOD-sp2): 68.6 ml LAV(MOD-sp4): 77.6 ml LA dimension(2D): 4.0 cm RA A4 area: 17.5 cm2 Time Measurements MV dec time: 0.19 sec Doppler Measurements & Calculations MV E max lake: 83.3 cm/sec Lat Peak E' [place]: 16.2 cm/sec Med Peak E[place]: 11.9 cm/sec MV A max lake: 59.9 cm/sec E/E' lat: 5.1 E/E' med: 7.0 MV E/A: 1.4 MV V2 max: 88.6 cm/sec Ao V2 max: 107.0 cm/sec MV max P.2 mmHg MV dec slope: 441.9 cm/sec2 Ao max P.6 mmHg MV V2 mean: 47.0 cm/sec Ao V2 mean: 74.4 cm/sec MV mean P.1 mmHg Ao mean P.5 mmHg MV V2 VTI: 25.4 cm Ao V2 VTI: 25.4 cm AV (velocity ratio): 0.93 LV V1 max: 97.7 cm/sec PA V2 max: 84.0 cm/sec LV V1 max P.8 mmHg PA V2 mean: 58.4 cm/sec LV V1 mean P.1 mmHg LV V1 mean: 67.6 cm/sec LV V1 VTI: 23.7 cm ECHO/Echo Complete W/ Contrast Interpretation Summary The study was technically difficult. Contrast injection was performed. Based upon the 2D echocardiographic and contrast enhanced images obtained there appears to be grossly normal left ventricular size, wall motion, and systolic function. The estimated ejection fraction is 60 %. The left atrium is mildly enlarged. Trivial mitral valve insufficiency. Trivial tricuspid valve insufficiency. Mild focal aortic valve calcification. Unable to estimate RV systolic pressure/pulmonary artery pressure due to techni ozzie difficult study. No evidence for diastolic dysfunction. Ordering Physician: Khanh Aranda Referring Physician: Khanh Aranda Performed By: Pat Bryan RCS
--- NOTE | 2022-02-02 08:51 | STRESSREP ---
Stress Test Report Date: 02-02-2022 Procedure: Exercise tolerance test/imaging study Indications: Chest pain; dyspnea; SVT; ventricular ectopy Consent: Per the patient Procedure: The patient exercised on a Sharif protocol for 6 minutes and 30 seconds completing Stage II and 30 seconds of Stage III achieving a peak heart rate of 155 bpm (88% predicted maximal heart rate) with resting blood pressure of 132/70 mmHg and a peak blood pressure 186/80 mmHg and a peak MET capacity of 8 METs. The baseline ECG demonstrated normal sinus rhythm; poor R wave progression. The peak exercise ECG demonstrated no obvious ECG changes. There were no cardiac dysrhythmias pretest, during exercise, or recovery. The functional capacity was considered average. There was no complaint of chest discomfort during exercise or recovery. The examination was discontinued secondary to dyspnea. Impression: 1. Technically adequate (percent predicted maximal heart rate greater than 85%) exercise tolerance test 2. Peak exercise ECG with no obvious ECG change 3. There were no cardiac dysrhythmias pretest, during exercise, or recovery 4. Nuclear images pending Myocardial perfusion imaging study: Technique: The patient was injected with 11.6 mCi of technetium 99m Cardiolite and subsequently rest SPECT Cardiolite nuclear imaging was obtained in the horizontal long, vertical long, and short axis views. The patient exercised on a Sharif protocol for 6 minutes and 30 seconds completing Stage II and 30 seconds of Stage III achieving a peak heart rate of 155 bpm (88% predicted maximal heart rate) with resting blood pressure of 132/70 mmHg and a peak blood pressure 186/80 mmHg and a peak MET capacity of 8 METs. The patient was injected with 34.3 mCi of technetium 99m Cardiolite and subsequently stress SPECT Cardiolite nuclear imaging was obtained in the horizontal long, vertical long, and short axis views. A gated Cardiolite study at peak stress was obtained. Interpretation: Rest and stress SPECT Cardiolite nuclear imaging status post realignment, normalization, and attenuation correction, demonstrates the appearance of body motion during image acquisition and status post-rest the appearance of diminished myocardial perfusion/tracer uptake in portions of the distal anterior/anteroapical segments. There is end systolic thickening and brightening. The gated Cardiolite study demonstrates myocardial thickening and inward wall motion. The reported LVEF is 56%. Impression: 1. Rest and stress SPECT Cardiolite nuclear imaging demonstrate the appearance of body motion during image acquisition and status post-rest the appearance of diminished myocardial perfusion/tracer uptake in portions of the distal anterior/anteroapical segments which is concerning for an element of stress-induced myocardial ischemia, however, shifting soft tissue attenuation/artifact from the body motion cannot necessarily be excluded.. 2. The gated Cardiolite study reports an LVEF of 56%. This note was generated with [employer] software. It may contain incorrect words, spelling, and punctuation that were not noted in checking the note before signing.
== END | disposition home or self-care (01) ==
PROVIDERS: PCP Family Medicine; Referring Provider Internal Medicine Cardiovascular Disease; Visit Provider Internal Medicine Cardiovascular Disease
DX: I47.1 Supraventricular tachycardia (principal); R00.2 Palpitations; R07.9 Chest pain, unspecified; Z99.89 Dependence on other enabling machines and devices
CPT/HCPCS: 78452; 93017; 93306; A9500; Q9957; A4216; C8929

== ENCOUNTER → 2022-02-09 | Outpatient (CLI) | payer BC, SELFPAY ==
[2022-02-09 16:07] LABS: Hematocrit 41.4 % (40-54); Hemoglobin 13.2 g/dL (13.0-16.5); Mean Corp Hgb Conc 31.9 g/dL (32-36); Mean Corpuscular Hgb 27.9 pg (27.0-32.0); Mean Corpuscular Volume 87.5 fL (80-94); Mean Platelet Vol. 8.6 fl (6.2-12.0); Platelet Count 351 K/mm3 (150-450); RBC Distribution Width CV 13.4 % (11.6-14.6); Red Blood Count 4.73 M/mm3 (4.6-6.2); White Blood Count 7.9 K/mm3 (4.4-11.0)
[2022-02-09 16:16] LABS: Prothrombin Time (Protime)PT. 12.9 SECONDS (11.7-14.9)
[2022-02-09 16:17] LABS: Partial Thromboplast Time 30.1 Seconds (24.1-36.2)
[2022-02-09 16:43] LABS: Anion Gap 3 (5-15); BUN 12 mg/dL (7-18); Calcium,Total 9.5 mg/dL (8.5-10.1); Chloride 105 mmol/L (98-107); EST Glomerular Filtration Rate 70 mL/min (>60); Est Glom Filt Rate - Afr Amer 84 mL/min (>60); Glucose 114 mg/dL (74-106); Potassium 4.1 mmol/L (3.5-5.1); Sodium Level 138 mmol/L (136-145)
== END | disposition home or self-care (01) ==
LOC: LAB 15:36
PROVIDERS: PCP Family Medicine; Visit Provider Internal Medicine Cardiovascular Disease
DX: R94.39 Abnormal result of other cardiovascular function study (principal); I47.1 Supraventricular tachycardia; R07.9 Chest pain, unspecified; G47.33 Obstructive sleep apnea (adult) (pediatric)
CPT/HCPCS: 36415; 71046; 80048; 85027; 85610; 85730

== ENCOUNTER 2022-02-23 07:34 | Day surgery (SDC) | payer BC, SELFPAY ==
--- NOTE | 2022-02-09 15:26 | RAD_ITS ---
EXAM: XR CHEST, 2 VIEWS CLINICAL INDICATION: chest pain TECHNIQUE: Frontal and lateral views of the chest. This report was created using [employer] report generation technology. COMPARISON: 12/04/2020 FINDINGS: LUNGS AND PLEURAL SPACES: Unremarkable. No consolidation or edema. No pneumothorax. No effusion. HEART: Unremarkable. Cardiac silhouette not enlarged. MEDIASTINUM: Central airways and mediastinal contour are unremarkable. BONES/JOINTS: Unremarkable. SOFT TISSUES: Unremarkable. RAD/Chest PA and Lateral IMPRESSION: No radiographic evidence of acute cardiopulmonary disease. Electronically Signed: Nathan Green MD at 16:13 EST ,
[2022-02-19 07:12] VITALS: BMI 45.9
--- NOTE | 2022-02-19 12:56 | PCM.HP.BLA ---
Documented by User: Stiven Aggarwal NP, [employer] DEVELOPER-C 02/19/22 13:00 History and Physical Date of Admission: 02/23/22 This is a 47-year-old white male who presents today for left heart catheterization. He established with us based upon concerns of a history of underlying ventricular ectopy and SVT with some concern of not only palpitations but chest discomfort. He states he has been diagnosed in the past with ventricular ectopy which appears compatible with PVCs. He has been on medical management which has included a beta-bert which he believes has been beneficial. He states there are times he does feel his heart going faster. He states he was advised by a family member, who is a physician, to perform various vagal maneuvers including carotid artery massage and cold water/ice to the face when these events occur. He has done so and he believes these maneuvers do help. He has not had any near-syncope or syncope. He denies any symptoms of classic chest discomfort. 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 He denies any symptoms of obvious orthopnea or PND or worsening peripheral pitting edema. He did undergo evaluation by his PCP group with a 24-hour Holter monitor. Based upon the review of the monitor it appeared there was significant underlying motion artifact as he is wearing the monitor while he is working with sinus rhythm as well as PVCs. There were episodes demonstrating a narrow complex tachycardia that appeared to demonstrate underlying atrial morphology appearing compatible with sinus tachycardia. Based upon the cardiac rhythm strips available for review there did not appear to be any definitive episodes of SVT. He has undergone remote echocardiogram and stress test. The results have been reviewed with him. He never required further evaluation with diagnostic cardiac catheterization. He had an ECG in the office. He was noted to be in sinus rhythm/sinus bradycardia with poor R wave progression and no acute ECG changes. He completed an echocardiogram on 02/02/2022 showed ejection fraction of 60%. His stress test on 02/02/2022 was considered to be abnormal showing an element of stress-induced myocardial ischemia, however, shifting soft tissue attenuation/artifact from the body motion cannot nicely be excluded. To evaluate abnormal stress test further and noted symptoms, he will proceed with heart catheterization. Intake Vital Signs: See EMR Intake Visit Reasons: [facility] Flight Follower Required: No Accompanied by: Self Allergies No Known Allergies Allergy (Verified 01/07/22 09:30) Medications See EMR [facility] Medical History Alcohol use Anemia Anxiety Bloating Change in bowel habits CPAP (continuous positive airway pressure) dependence Hiatal hernia History of irregular heartbeat History of stress test Lipoma Myeloma ISIDRO (obstructive sleep apnea) Sleep apnea SVT (supraventricular tachycardia) Wears contact lenses Surgical History H/O shoulder replacement Family History Father Throat cancer Mother Lung disease Grandfather Heart disease Myocardial infarction Social History Smoking Status: Former smoker Tobacco: How many years used: 15 Smokeless tobacco user: chewing tobacco second hand exposure: No alcohol intake: current details: 6 beers substance use type: does not use caffeine: Yes Type: carbonated beverages Number of servings: 1, coffee Number of servings: 1 and tea what type of physical activity do you participate in: walking, bicycling and weight training frequency: 3-4 times per week angely/pentecostalism: Cheondoism seatbelt use: sometimes do you feel safe at home: Yes ROS Const Const: Positive for fatigue (increased); Negative for weakness, body ache, fever(s), headache(s), chills, frequent falls, night sweats, daytime sleepiness, difficulty sleeping, excessive sweating, weight gain, weight loss, increased appetite, poor appetite, anorexia or other Eyes Eyes: Negative for blurry vision or double vision ENT ENT: Positive for dizziness (most days; random); Negative for headache(s) or balance problems Cardio Chest Pain: Yes Character: sharp and other (ache) Onset: at rest and exercise Location: mid sternal and left chest Duration: minutes Relieving: other (massage) Palpitations: Yes (daily in the evening; can last 15 minutes up to hours, becomes SOB) feels like its: fast and skipping Edema: None Muscle aches with walking: Bilateral (pedals) Resp Respiratory: Positive for SOB at rest (notes in the evening while watching TV when has palpitations) and other (wears CPA, used to follow with Dr. Parham, hasnt seen in quite awhile); Negative for SOB with activity, SOB orthopnea\SOB lying down, Cough, Coughing up blood/hemoptysis, chest congestion, pain on inspiration, snoring, stridor, wheezing, crackles or paroxysmal nocturnal dyspnea Musc Musc: Positive for joint pain (bilat knees); Negative for muscle aches/ myalgia, muscle weakness or balance problems Neuro Neuro: Positive for dizziness (most days; random) and lightheadedness (most days; random); Negative for near syncope, syncope, orthostatic symptoms, frequent falls, headache(s), weakness, confusion, memory loss, restless legs, blurry vision, double vision, vertigo, seizures, lack of coordination or other Endo Endo: Positive for fatigue (increased); Negative for excessive sweating Cardiology Exam Const Appearance: cooperative, healthy appearing, comfortable, no acute distress, well developed and well groomed Nutritional Appearance: obese Orientation: alert, awake and oriented x3 GI GI: obese Supplemental Info Supplemental Information Stress Test Report Date: [04/18/2019] Procedure: Exercise tolerance test/imaging study Indications: Chest pain Consent: Per the patient Procedure: The patient exercised on a Sharif protocol for 7 minutes and 30 seconds achieving a peak heart rate of 162 bpm (91 % predicted maximal heart rate) with a peak blood pressure 140/82 mmHg and a peak MET capacity of 9.3 METs. The baseline ECG demonstrated normal sinus rhythm. The peak exercise ECG demonstrated no significant ischemic changes. EKG during recovery revealed no significant ischemic changes [There were no cardiac dysrhythmias pretest, during exercise, or recovery]. The functional capacity was slightly decreased for age. There was [no complaint of chest discomfort during exercise or recovery]. The examination was discontinued secondary to dyspnea, leg discomfort. Impression: 1. Technically adequate (percent predicted maximal heart rate greater than 85%) exercise tolerance test 2. Stress test is negative for exercise-induced EKG changes of ischemia 3. The test test is negative for exercise-induced chest pain 4. Functional capacity is slightly decreased for age 5. Nuclear images pending Myocardial perfusion imaging study: Technique: The patient was injected with 14.7 mCi of technetium 99m Cardiolite and subsequently rest SPECT Cardiolite nuclear imaging was obtained in the horizontal long, vertical long, and short axis views. The patient exercised on a Sharif protocol. Please see above for details. The patient was injected with 44.9 mCi of technetium 99m Cardiolite and subsequently stress SPECT Cardiolite nuclear imaging was obtained in the horizontal long, vertical long, and short axis views. A gated Cardiolite study at peak stress was obtained. Interpretation: Rest and stress SPECT Cardiolite nuclear imaging status post realignment, normalization, and attenuation correction, demonstrates mild decrease in the myocardial radioisotope uptake in the apex on both the rest and stress images. There is no significant reversibility. These findings are suggestive of apical thinning, normal variant. The gated Cardiolite study demonstrates no significant regional wall motion abnormalities. The reported LVEF is 63 %. Impression: 1. There is no evidence of significant ischemia or infarction. 2. The gated Cardiolite study reports an LVEF of 63 %. Labs: LDL Cholesterol 146 mg/dL (0-130) H HDL Cholesterol 34 mg/dL (40-) L Triglycerides 267 mg/dL (-199) H VLDL Cholesterol 53 mg/dL (5-40) H Diagnostics: Electrocardiogram Stress Test NM Stress Test Chest X-Ray Pulmonary: No Data to Display Assessment and Plan Assessment and Plan (1) SVT (supraventricular tachycardia): Status: Acute Plan: At the present time he describes symptoms that may be compatible with a reentry mechanism tachycardia such as an AVNRT which breaks when he performs vagal maneuvers. However his Holter monitor does not appear to demonstrate a classic finding compatible with this based upon the cardiac rhythm strips available for review. He continues with his symptoms. Thus it was felt reasonable that he undergo an attempt to further correlate his symptoms with his rhythm. He will be asked to have a 30-day outpatient ambulatory event monitor. In the interim he will continue his beta-bert therapy. (2) Palpitations: Status: Acute Plan: He does have palpitations. This appears to be longstanding. This appears to be related to his underlying ventricular ectopy/PVCs. He does seem to have benefit from his beta-bert. Thus this will be continued. (3) Chest pain in adult: Status: Acute Plan: To assess this further, he underwent an echocardiogram and stress test. His stress test was considered to be abnormal. Thus, he will proceed with heart catheterization to assess further. Based on results, further recommendation will be made. (4) CPAP (continuous positive airway pressure) dependence: Status: Acute Plan: He does have a history of ISIDRO. He states he has a new CPAP device. He states that he has not been evaluated by his salvage grinder for years . Thus he was recommended to return to his salvage grinder for reevaluation of his CPAP device and whether or not he needs any adjustment with the settings of his device as ISIDRO can contribute to concerns of underlying cardiac ectopy and dysrhythmias. Documented by User: Dr. Khanh Aranda MD 02/23/22 08:04 Assessment & Plan Addt'l Comments Addendum: 02-23-2022 The patient underwent further evaluation with a transthoracic echocardiogram on 02-02-2022. The results are as noted. Interpretation Summary The study was technically difficult. Contrast injection was performed. ? Based upon the 2D echocardiographic and contrast enhanced images obtained there appears to be grossly normal left ventricular size, wall motion, and systolic function. The estimated ejection fraction is 60 %. The left atrium is mildly enlarged. Trivial mitral valve insufficiency. Trivial tricuspid valve insufficiency. Mild focal aortic valve calcification. Unable to estimate RV systolic pressure/pulmonary artery pressure due to technically difficult study. No evidence for diastolic dysfunction. The patient underwent evaluation with a stress nuclear imaging study on 02-02-2022. The results are as noted. Stress Test Report Date: 02-02-2022 Procedure: Exercise tolerance test/imaging study Indications: Chest pain; dyspnea; SVT; ventricular ectopy Consent: Per the patient Procedure: The patient exercised on a Sharif protocol for 6 minutes and 30 seconds completing Stage II and 30 seconds of Stage III achieving a peak heart rate of 155 bpm (88% predicted maximal heart rate) with resting blood pressure of 132/70 mmHg and a peak blood pressure 186/80 mmHg and a peak MET capacity of 8 METs. The baseline ECG demonstrated normal sinus rhythm; poor R wave progression.? The peak exercise ECG demonstrated no obvious ECG changes. There were no cardiac dysrhythmias pretest, during exercise, or recovery.? The functional capacity was considered average. There was no complaint of chest discomfort during exercise or recovery. The examination was discontinued secondary to dyspnea. Impression: 1.? Technically adequate (percent predicted maximal heart rate greater than 85%) exercise tolerance test 2.? Peak exercise ECG with no obvious ECG change 3.? There were no cardiac dysrhythmias pretest, during exercise, or recovery 4.? Nuclear images pending Myocardial perfusion imaging study: Technique: The patient was injected with 11.6 mCi of technetium 99m Cardiolite and subsequently rest SPECT Cardiolite nuclear imaging was obtained in the horizontal long, vertical long, and short axis views. The patient exercised on a Sharif protocol for 6 minutes and 30 seconds completing Stage II and 30 seconds of Stage III achieving a peak heart rate of 155 bpm (88% predicted maximal heart rate) with resting blood pressure of 132/70 mmHg and a peak blood pressure 186/80 mmHg and a peak MET capacity of 8 METs. The patient was injected with 34.3 mCi of technetium 99m Cardiolite and subsequently stress SPECT Cardiolite nuclear imaging was obtained in the horizontal long, vertical long, and short axis views.? A gated Cardiolite study at peak stress was obtained. Interpretation: Rest and stress SPECT Cardiolite nuclear imaging status post realignment, normalization, and attenuation correction, demonstrates the appearance of body motion during image acquisition and status post-rest the appearance of diminished myocardial perfusion/tracer uptake in portions of the distal anterior/anteroapical segments.? There is end systolic thickening and brightening.? The gated Cardiolite study demonstrates myocardial thickening and inward wall motion.? The reported LVEF is 56%. Impression: 1.? Rest and stress SPECT Cardiolite nuclear imaging demonstrate the appearance of body motion during image acquisition and status post-rest the appearance of diminished myocardial perfusion/tracer uptake in portions of the distal anterior/anteroapical segments which is concerning for an element of stress-induced myocardial ischemia, however, shifting soft tissue attenuation/artifact from the body motion cannot necessarily be excluded.. 2.? The gated Cardiolite study reports an LVEF of 56%. Based upon the patient's clinical course and objective findings further evaluation with diagnostic cardiac catheterization was recommended. The procedure and risk were discussed with the patient. He was agreeable to this approach. This note was generated using a voice recognition system and there may be incorrect words, spelling or punctuation that were not noted when reviewing the office note prior to saving.
--- NOTE | 2022-02-23 10:35 | CL.D_ITS ---
Patient Name: VAIBHAV SOTO Study Date: 02/23/2022 Performing: Khanh Aranda MD Ht: 68 inches 172.72 cm : 1975 Wt: 301.99 lbs 136.98 kg Age: 47 Gender: male BSA: 2.44 PROCEDURE(S) PERFORMED [id number])LHC/COR/LV CLINICAL PROFILE AND INDICATIONS Indications: Cardiac Arrythmia, Suspected CAD Heart Failure: None Stress/Imaging Date: 02/02/2022tress Test with SPECT MPI: Positive Intermediate Risk Angina Classification Anginal Classification w/in 2 Weeks: No symptoms CAD Presentations: Other: Palpitations CONCLUSIONS Elevated Left Ventricular End Diastolic Pressure (mild) Normal LV size, wall motion,and systolic function LVEF: by LV gram 65 % [place] Multivessel CAD: mild luminal irregularities / non obstructive RECOMMENDATIONS Risk factor modification Medical therapy DESCRIPTION OF PROCEDURE The patient arrived to the procedure lab. The risks and benefits of the procedure as well as a full description of our services here and current unavailability of surgical backup were fully explained to the patient and/or their significant other prior to the catheterization. The Timeout was completed, verifying the correct patient and procedure. The patient's procedural site was prepped and draped in the usual fashion. Local anesthetic was given subcutaneously to right radial region with Lidocaine 2%. Local anesthetic was given subcutaneously to right groin region with Lidocaine 2%. Using a modified Seldinger technique, arterial access was obtained via the right radial artery, a 6Fr sheath was inserted., arterial access was obtained via the right femoral artery, a 4Fr sheath was inserted Right radial selective angiography was then performed in single view. Left Coronary Artery selective angiography was performed in multiple views using a 4 Fr. JL5 catheter. Right Coronary Artery selective angiography was then performed in multiple views using a 4 Fr. 3DRC catheter. Left Ventriculography was performed in HERNANDEZ projection using a 4 Fr. Pigtail catheter. LV to AO pullback pressures were then recorded. CORONARY ANGIOGRAPHY DOMINANCE: Right Dominant LEFT HEART ASSESSMENT Left Ventricular Ejection Fraction: by LV Gram 65 % Normal LV wall motion Elevated Left Ventricular End Diastolic Pressure LVEDP: 18 mmHg LEFT MAIN: Angiographically normal LEFT ANTERIOR DESCENDING ARTERY: Mild luminal irregularities CIRCUMFLEX ARTERY: Mild luminal irregularities RIGHT CORONARY ARTERY: PROX RCA: Mild luminal irregularities AORTIC ROOT: Angiographically normal COMPLICATIONS No Complications PROCEDURE MEDICATIONS Fentanyl 50 mcg IV Versed 1 mg IV Fentanyl 50 mcg IV Versed 1 mg IV Oxygen: 2 L/min via nasal cannula Benadryl 25 mg IV @ 02/23/2022 10:14:23 Heparin given IA 02/23/2022 09:42:05 Verapamil 2.5mg, Ntg 100mcgs, 3000 units of Heparin given IA 02/23/2022 09:42:05 SUMMARY OF HEMODYNAMIC DATA Time AIR REST ECG 07:56:09 AO 117/81 (94) SA 09:59:55 LV 129/6, 26 10:07:09 LV 131/0, 18 10:07:15 LV 130/5, 26 10:08:13 LV 126/3, 22 10:08:19 LVp 136/1, 21 10:08:24 AOp 128/79 (102) 10:08:29 Signed By Khanh Aranda MD On 02/23/2022 10:34:22 Khanh Aranda MD
== END 2022-02-23 14:40 | disposition home or self-care (01) ==
PROVIDERS: PCP Family Medicine; Referring Provider Internal Medicine Cardiovascular Disease; Visit Provider Internal Medicine Cardiovascular Disease
DX: I47.1 Supraventricular tachycardia (principal); R06.02 Shortness of breath; M79.10 Myalgia, unspecified site; Z87.891 Personal history of nicotine dependence; M25.561 Pain in right knee; M25.562 Pain in left knee; R00.2 Palpitations; G47.33 Obstructive sleep apnea (adult) (pediatric); R07.9 Chest pain, unspecified
CPT/HCPCS: 71046; 93458; 99152; 99153; J7040; Q9967; C1769; C1894

== ENCOUNTER → 2022-03-03 | Outpatient (CLI) | payer BC, SELFPAY ==
[2022-03-03 13:28] LABS: Protein, Urine (Random) 6.9 mg/dL (<11.9); Protein:Creat Ratio 63 mg/g CRE (0-200)
== END | disposition home or self-care (01) ==
LOC: LABSPEC 11:33
PROVIDERS: PCP Family Medicine; Visit Provider Internal Medicine Nephrology
DX: R80.9 Proteinuria, unspecified (principal)
CPT/HCPCS: 82570; 84156

== ENCOUNTER → 2022-08-17 | Outpatient (CLI) | payer BC, SELFPAY ==
[2022-08-17 10:55] LABS: Protein, Urine (Random) 57.2 mg/dL (<11.9); Protein:Creat Ratio 447 mg/g CRE (0-200)
[2022-08-17 11:11] LABS: Albumin, Serum 3.6 g/dL (3.2-5.0); BUN 10 mg/dL (7-18); BUN/Creat Ratio 8.7 RATIO (10-20); Calcium,Total 9.1 mg/dL (8.5-10.1); Chloride 104 mmol/L (98-107); Creatinine, Serum 1.15 mg/dL (0.70-1.30); EST Glomerular Filtration Rate 73 mL/min (>60); Est Glom Filt Rate - Afr Amer 88 mL/min (>60); Glucose 109 mg/dL (74-106); Potassium 4.4 mmol/L (3.5-5.1); Sodium Level 135 mmol/L (136-145)
== END | disposition home or self-care (01) ==
LOC: LAB.FUTURE 10:07 → LAB 10:09
PROVIDERS: PCP Family Medicine; Referring Provider Internal Medicine Nephrology; Visit Provider Internal Medicine Nephrology
DX: N18.31 Chronic kidney disease, stage 3a (principal); R80.9 Proteinuria, unspecified
CPT/HCPCS: 36415; 80069; 82570; 84156

== ENCOUNTER → 2022-09-27 | Outpatient (CLI) | payer BC, SELFPAY ==
--- NOTE | 2022-09-27 08:59 | RAD_ITS ---
EXAM: XR BONE SURVEY, COMPLETE CLINICAL INDICATION: F/U SMOLDERING MYELOMA F/U SMOLDERING MYELOMA TECHNIQUE: Multiple views of the bones of the axial and appendicular skeleton. COMPARISON: MRI T-spine and L-spine 03/24/2021. Chest x-ray 02/09/2022. FINDINGS: BONES/JOINTS: There are surgical anchors in the right humeral head. No acute findings. No lytic or blastic lesions. SOFT TISSUES: Unremarkable. RAD/Bone Survey Comp(Axial&Append) IMPRESSION: No visualized destructive bone lesions.. Electronically Signed: Mikel Fam MD at 4:52 EDT ,
== END | disposition home or self-care (01) ==
LOC: RAD 08:58
PROVIDERS: PCP Family Medicine; Referring Provider Internal Medicine Hematology & Oncology; Visit Provider Internal Medicine Hematology & Oncology
DX: D47.2 Monoclonal gammopathy (principal)
CPT/HCPCS: 77075

== ENCOUNTER → 2023-01-31 | Outpatient (CLI) | payer BC, SELFPAY ==
[2023-01-31 07:30] LABS: AST(SGOT) 18 U/L (15-37); Alanine Aminotransfer ALT/SGPT 44 U/L (16-61); Albumin, Serum 3.5 g/dL (3.2-5.0); Alkaline Phosphatase 65 U/L (45-117); Anion Gap 8 (5-15); BUN 10 mg/dL (7-18); BUN/Creat Ratio 8.9 RATIO (10-20); Chloride 105 mmol/L (98-107); Cholesterol 221 mg/dL (200); Creatinine, Serum 1.12 mg/dL (0.70-1.30); EST Glomerular Filtration Rate 75 mL/min (>60); Est Glom Filt Rate - Afr Amer 91 mL/min (>60); Globulin 3.6 g/dL (2.2-4.2); Glucose 119 mg/dL (74-106); High Density Lipoprotein 31 mg/dL; Potassium 4.1 mmol/L (3.5-5.1); Protein, Total 7.1 g/dL (6.4-8.2); Sodium Level 140 mmol/L (136-145); Triglycerides 295 mg/dL; Very Low Density Lipoprotein 59 mg/dL (5-40)
[2023-02-07 12:08] LABS: Testosterone, % Free 2.67 % (1.50-4.20); Testosterone, Free 5.42 ng/dL (5.00-21.00); Testosterone, Total 203 ng/dL (264-916)
== END | disposition home or self-care (01) ==
PROVIDERS: PCP Family Medicine; Referring Provider Family Medicine; Visit Provider Family Medicine
DX: E78.5 Hyperlipidemia, unspecified (principal); R79.89 Other specified abnormal findings of blood chemistry
CPT/HCPCS: 36415; 80053; 80061; 84402; 84403

== ENCOUNTER → 2023-03-04 | Outpatient (CLI) | payer BC, SELFPAY ==
--- OUTSIDE RECORDS SUMMARY | 2023-03-04 06:36 | XMS RPT_ITS | CCD ---
Author Name Unknown Address [address] [place] [address] Organization [facility] Care Team Providers Care Medical Office Technologist Name Role Phone LISSET JARRETT Referring Unavailable HOANG KAUFMAN Primary Care UnavailLAQUITA Olivas JR. DON Attending Unavailable Hoang Kaufman MD Primary Care Provider Medications Completed/Discontinued Medications Medication Drug Class(es) Dates Sig (Normalized) Sig (Original) Esomeprazole (1 source) Proton Pump Inhibitor esomeprazo le magnesium (NEXIUM ORAL) Take by mouth. 0 Active Problems Problem Classification Problem Date Documented Da te Episodic/Chronic Other eye disorders (1 source) Pain of right eye; Translations: [Ocular pain, right eye] Episodic Results Test Name Value Interpretation Reference Range Facil ity Vital Signs Date Time Vital Sign Value Performing Clinician [facility] [place] 09-24-2021 09:04-0400 Body temperature 97.81 [degF] Rick Mariscal MD Work Phone: [facility] 09-24-2021 09:04-0400 Body weight 139.16 kg Rick Mariscal MD Work Phone: [facility] 09-24-2021 09:04-0400 Diastolic blood pressure 76 mm[Hg] Rick Mariscal MD Work Phone: [facility] 09-24-2021 09:04-0400 Heart rate 75 /min Rick Mariscal MD Work Phone: [facility] 09-24-2021 09:04-0400 Respiratory rate 18 /min Rick Mariscal MD Work Phone: [facility] 09-24-2021 09:04-0400 SaO2% (BldA) [Mass fraction] 97 % Rick Mariscal MD Work Phone: [facility] 09-24-2021 09:04-0400 Systolic blood pressure 128 mm[Hg] Rick Mariscal MD Work Phone: [facility] Encounters Encounter Date Encounter Type Care Provider Facility Start: 09-24-2021 End: 09-24-2021 Patient encounter procedure Rick Mariscal MD Work Phone: [facility] Plan of Treatment Date Care Activity Detail Author Start: 10-22-2021 Influenza vaccination INFLUENZA (#1) [facility] Start: 02-05-2012 LIPID SCREEN LIPID SCREEN [facility] Start: 02-05-1996 Urine microalbumin profile DTAP,TDAP ,TD (1 - Tdap) [facility] Start: 1995 HEPATITIS C SCREENING HEPATITIS C SC REENING [facility] Start: 1995 HIV SCREENING HIV SCREENING [facility] Start: 1989 Adult depression scr [facility] assessment DEPRESSION SCREENING [facility] Start: 1977 COVID-19 VACCINE (#1) COVID-19 VACCI NE (#1) [facility] Payers Date Payer Category Payer Unknown [id number] 2021 Unknown LEONCIO DUKES SS PPO [id number] 2021-Present [phone] [address] [place] [address] PPO [id number] 1977 Unknown [id number] Social History Date Type Detail Facility Start: 09-24-2021 Tobacco smoking stat us [facility] Never smoked tobacco [facility] Start: 09-24-2021 Tobacco use and exposure Smokeless tobacco non-user [facility] Start: 09-24-2021 Alcohol intake Current drinke r of alcohol (finding) [facility] Start: 09-24-2021 History SDOH Alcohol Comment social beer [facility] Start: 1975 Sex Assigned At Not on file C [facility] Start: 09-14-2021 End: 09-24-2021 Exposure to SARS-CoV-2 (event) Not sure [facility] Work Phone: [facility] note 09-24-2021 Note Date & Type Note Facility 09-24-2021 Note HNO ID: [id number] Author: Rick Mariscal MD Service: ? Author Type: Physician Type: Progress Notes Filed: 09/24/2021 9:53 AM Note Text: Patient presents with: Eye Problem: (RT) eye irritation, pain rated 7, reported contacts in place x1 day HPI: Feeling right eye pain since last night, currently 8/10. Recalls on foreign body or abrasion incident. Positive symptoms: clear tearing, right eye pain and redness, Rhinorrhea, contact lens use, sometimes photophobia Negative symptoms: Cough, Sore throat, Fever, vision change, scratchy sensation on eye surface OTC: none. Wearing contact lens feels better. No personal or family history of glaucoma, PAST MEDICAL HISTORY Diagnosis Date - Anxiety - Smoldering multiple myeloma (SMM) - Ventricular ectopy MEDICATIONS: Current Outpatient Medications Medication Sig - nebivolol (BYSTOLIC) 5 mg tablet Take by mouth. - esomeprazole magnesium (NEXIUM ORAL) Take by mouth. - venlafaxine XR (EFFEXOR XR) 150 mg 24 hr capsule Take 150 mg by mouth once daily. No current facility-administered medications for this visit. ALLERGIES: ALLERGIES No Known Allergies VITALS: BP 128/76 Pulse 75 Temp 36.6 ?C (97.8 ?F) Resp 18 Wt (!) 139.2 kg (306 lb 12.8 oz) SpO2 97% Right eye 20/25 Left eye 20/25 Both 20/15 PHYSICAL EXAM: GEN: pleasant, uncomfortable, diaphoretic HEENT: PERRL, EOMI, left conjunctiva clear. Difficulty holding eye open for exam. Tetracaine drops applied to right eye. Right eye clear tearing. Moderate to severe scleral injection. Soft contact lens in place. No visible foreign body or corneal defect. Minimal photophobia. Ears: canals clear. TMs without erythema, bulge, or effusion Sinuses: non-tender frontal sinus, non-tender maxillary sinuses Throat: moist mucous membranes, no erythema, no exudate Neck: supple, no thyromegaly, no lymphadenopathy HEART: regular rate and rhythm, no murmurs LUNGS: clear to auscultation, no wheezes or crackles, no increased WOB ASSESSMENT/PLAN: 1. Eye pain, right - ICD9: 379.91, ICD10: H57.11 Differential includes foreign body, conjunctivitis/scleritis, iritis, glaucoma. I recommended a more thorough exam which should include slit lamp and pressure check for potentially site threatening condition. He has an oncology appointment at 11 and does not want to miss it. He has a local eye doctor and will schedule with him today - declines assistance with scheduling at his office or with [facility]. - CONSULT TO OPHTHALMOLOGY Rick Mariscal MD [facility] History of Present illness Narrative 09-24-2021 Rick Mariscal MD - 09/24/2021 9:16 AM EDT Note Date & Type Note Facility 09-24-2021 History of Presen t illness Narrative Patient presents with: Eye Problem: (RT) eye irritation, pain rated 7, reported contacts in place x1 day HPI: Feeling right eye pain since last night, currently 8/10. Recalls on foreign body or abrasion incident. Positive symptoms: clear tearing, right eye pain and redness, Rhinorrhea, contact lens use, sometimes photophobia Negative symptoms: Cough, Sore throat, Fever, vision change, scratchy sensation on eye surface OTC: none. Wearing contact lens feels better. No personal or family history of glaucoma, PAST MEDICAL HISTORY Diagnosis Date Anxiety Smoldering multiple myeloma (SMM) Ventricular ectopy MEDICATIONS: Current Outpatient Medications Medication Sig nebivolol (BYSTOLIC) 5 mg tablet Take by mouth. esomeprazole magnesium (NEXIUM ORAL) Take by mouth. venlafaxine XR (EFFEXOR XR) 150 mg 24 hr capsule Take 150 mg by mouth once daily. No current facility-administered medications for this visit. ALLERGIES: ALLERGIES No Known Allergies VITALS: BP 128/76 Pulse 75 Temp 36.6 C (97.8 F) Resp 18 Wt (!) 139.2 kg (306 lb 12.8 oz) SpO2 97% Right eye 20/25 Left eye 20/25 Both 20/15 PHYSICAL EXAM: GEN: pleasant, uncomfortable, diaphoretic HEENT: PERRL, EOMI, left conjunctiva clear. Difficulty holding eye open for exam. Tetracaine drops applied to right eye. Right eye clear tearing. Moderate to severe scleral injection. Soft contact lens in place. No visible foreign body or corneal defect. Minimal photophobia. Ears: canals clear. TMs without erythema, bulge, or effusion Sinuses: non-tender frontal sinus, non-tender maxillary sinuses Throat: moist mucous membranes, no erythema, no exudate Neck: supple, no thyromegaly, no lymphadenopathy HEART: regular rate and rhythm, no murmurs LUNGS: clear to auscultation, no wheezes or crackles, no increased WOB ASSESSMENT/PLAN: 1. Eye pain, right - ICD9: 379.91, ICD10: H57.11 Differential includes foreign body, conjunctivitis/scleritis, iritis, glaucoma. I recommended a more thorough exam which should include slit lamp and pressure check for potentially site threatening condition. He has an oncology appointment at 11 and does not want to miss it. He has a local eye doctor and will schedule with him today - declines assistance with scheduling at his office or with [facility]. - CONSULT TO OPHTHALMOLOGY Rick Mariscal MD documented in this encounter [facility] Evaluation note Note Date & Type Note Facility documented in this encounter [facility] Summary Purpose Family History No Family History Records FoundNo Family History Records Found Advance Directives No Advanced Directives Records FoundNo Advanced Directives Records Found Reason for Referral Specialty Diagnoses / Procedures Referred By Mira t Referred To Contact Ophthalmology Diagnoses Eye pain, right Procedures CONSULT TO OPHTHALMOLOGY OFFICE/OUTPATIENT [facility] 60-74 MINUTES Rick Mariscal MD [address] [place] [address] Referral ID Status Reason Start Date Expiration Date Visits Requested Visits Authorized [id number] Authorized PCP Requested Referral 09/24/2021 09/24/2022 1 1 Additional Source Comments (unrecognized sect ion and content) No Status Records FoundNo Status Records Found INFORMATION SOURCE (unrecogn ized section and content) DATE CREATED AUTHOR AUTHOR'S ORGANIZ ATION 10/15/2021 [facility] Source Comments (unrecognize d section and content) In the event this informatio n is protected by the Federal Confidentiality of Alcohol and Drug Abuse Patient Records regulations: The Federal rules restrict any use of the information to criminally investigate or prosecute any alcohol or drug abuse patient.[facility] Reason for Visit (unrecogniz ed section and content) Care Teams (unrecognized sec tion and content) FOR RECORDS PERTAINING TO PATIENTS WHO ARE OR HAVE BEEN ENROLLED IN A CHEMICAL DEPENDENCY/SUBSTANCEABUSE PROGRAM, SOME INFORMATION MAY BE OMITTED. This clinical summary was aggregated from multiple sources. Caution should be exercised in using it in the provision of clinical care. This summary normalizes information from multiple sources, and as a consequence, information in this document may materially change the coding, format and clinical context of patient data. In addition, data may be omitted in some cases. CLINICAL DECISIONS SHOULD BE BASED ON THE PRIMARY CLINICAL RECORDS. [facility]. provides no warranty or guarantee of the accuracy or completeness of information in this document.
[2023-03-04 06:45] LABS: Absolute Lymphocyte Count 3.23 X10^3/uL (0.83-4.51); Absolute Neutrophil Count 3.9 X10^3/uL (2.0-7.7); Basophil# 0.06 X10^3/uL; Basophil% 0.7 % (0-1); Eosinophil# 0.14 X10^3/uL; Eosinophils% 1.7 % (0-5); Hematocrit 38.2 % (40-54); Hemoglobin 12.7 g/dL (13.0-16.5); Lymphocyte # 3.23 X10^3/ul (0.83-4.51); Lymphocyte % 38.5 % (19-41); Mean Corp Hgb Conc 33.2 g/dL (32-36); Mean Corpuscular Hgb 29.1 pg (27.0-32.0); Mean Corpuscular Volume 87.4 fL (80-94); Mean Platelet Vol. 8.3 fl (6.2-12.0); Monocyte# 1.11 X10^3/uL; Monocyte% 13.2 % (0-10); NRBC Flagged by Analyzer 0 % (0-5); Neutrophil # 3.85 X10^3/uL (2.7-7.7); Neutrophil % 45.8 % (47-70); Platelet Count 299 K/mm3 (150-450); RBC Distribution Width CV 12.8 % (11.6-14.6); RBC Distribution Width SD 40.9 fl (35.1-43.9); Red Blood Count 4.37 M/mm3 (4.6-6.2); White Blood Count 8.4 K/mm3 (4.4-11.0)
[2023-03-04 07:22] LABS: ALB/GLOB Ratio 1.1 RATIO (0.9-2.4); AST(SGOT) 21 U/L (15-37); Alanine Aminotransfer ALT/SGPT 46 U/L (16-61); Albumin, Serum 3.9 g/dL (3.2-5.0); Alkaline Phosphatase 69 U/L (45-117); Anion Gap 8 (5-15); BUN 18 mg/dL (7-18); Calcium,Total 9.5 mg/dL (8.5-10.1); Chloride 105 mmol/L (98-107); Creatinine, Serum 1.29 mg/dL (0.70-1.30); EST Glomerular Filtration Rate 64 mL/min (>60); Est Glom Filt Rate - Afr Amer 77 mL/min (>60); Globulin 3.4 g/dL (2.2-4.2); Glucose 117 mg/dL (74-106); Potassium 3.9 mmol/L (3.5-5.1); Protein, Total 7.3 g/dL (6.4-8.2); Sodium Level 139 mmol/L (136-145)
[2023-03-07 14:08] LABS: Albumin 3.9 g/dL (2.9-4.4); Alpha-1-Globulins 0.2 g/dL (0.0-0.4); Free Kappa Light Chains 428.5 mg/L (3.3-19.4); Free Lambda Light Chains 5.7 mg/L (5.7-26.3); Gamma Globulin 0.4 g/dL (0.4-1.8); Immunoglobulin A 989 mg/dL (90-386); Immunoglobulin G 472 mg/dL (603-1613); Immunoglobulin M 8 mg/dL (20-172); PROEL- TOTAL PROTEIN 6.9 g/dL (6.0-8.5)
== END | disposition home or self-care (01) ==
LOC: LAB 06:33
PROVIDERS: PCP Family Medicine; Referring Provider Internal Medicine Hematology & Oncology; Visit Provider Internal Medicine Hematology & Oncology
DX: C90.00 Multiple myeloma not having achieved remission (principal)
CPT/HCPCS: 36415; 80053; 82784; 83883; 84165; 85025; 86334

== ENCOUNTER → 2023-03-07 | Outpatient (CLI) | payer BC, SELFPAY ==
--- NOTE | 2023-03-07 10:12 | MRI_ITS ---
STUDY: MRI LEFT SHOULDER REASON FOR EXAM: Male, 48 years old. Left shoulder pain. TECHNIQUE: Standardized fat and water weighted pulse sequences were obtained in all 3 orthogonal planes. COMPARISON: Left shoulder radiographs dated 05/04/2017. FINDINGS: There is minimal supraspinatus tendinosis without a full-thickness tear. Normal infraspinatus tendon. Normal subscapularis tendon. Normal teres minor tendon. Normal supraspinatus muscle. Normal infraspinatus muscle. Normal subscapularis muscle. Normal teres minor muscle. Normal glenohumeral articulation. There is mild enthesopathic subcortical edema/cyst formation of the greater tuberosity of the humeral head. Normal biceps labral complex. Normal intracapsular long biceps tendon. Normal labrum. Normal capsulo-ligamentous complex. Normal rotator interval. There is mild acromioclavicular arthrosis. There is a Type II morphology (curved), with a neutral orientation. There is trace subacromial-subdeltoid bursal fluid. Normal visualized coracohumeral and coracoacromial ligaments. Normal quadrilateral space. Normal axillary space. Normal deltoid muscle. Normal trapezius muscle. MRI/Upper Ext Joint Only(Routine) IMPRESSION: Minimal supraspinatus tendinosis without a full-thickness rotator cuff tear. Mild acromioclavicular arthrosis. Minimal subacromial-subdeltoid bursitis. Electronically Signed: Neno Fuller MD at 15:22 EST ,
--- OUTSIDE RECORDS SUMMARY | 2023-03-07 10:33 | XMS RPT_ITS | CCD ---
Author Name Unknown Address [address] [place] [address] Organization [facility] Care Team Providers Care Tube Roller Name Role Phone LISSET JARRETT Referring Unavailable [...] 97.81 [degF] Rick Mariscal MD Work Phone: [facility] 09-24-2021 09:04-0400 Body weight 139.16 kg Rick Mariscal MD Work Phone: [facility] 09-24-2021 09:04-0400 Diastolic blood pressure 76 mm[Hg] Rick Mariscal MD Work Phone: [facility] 09-24-2021 09:04-0400 Heart rate 75 /min Rick Mariscal MD Work Phone: [facility] 09-24-2021 09:04-0400 Respiratory rate 18 /min Rick Mariscal MD Work Phone: [facility] 09-24-2021 09:04-0400 SaO2% (BldA) [Mass fraction] 97 % Rick Mariscal MD Work Phone: [facility] 09-24-2021 09:04-0400 Systolic blood pressure 128 mm[Hg] Rick Mariscal MD Work Phone: [facility] Encounters Encounter Date Encounter Type Care Provider Facility Start: 09-24-2021 End: 09-24-2021 Patient encounter procedure Rick Mariscal MD Work Phone: [facility] Plan of Treatment Date Care Activity Detail Author Start: 10-22-2021 Influenza vaccination INFLUENZA (#1) [facility] Start: 02-05-2012 LIPID SCREEN LIPID SCREEN [facility] Start: 02-05-1996 Urine microalbumin profile DTAP,TDAP ,TD (1 - Tdap) [facility] Start: 1995 HEPATITIS C SCREENING HEPATITIS C SC REENING [facility] Start: 1995 HIV SCREENING HIV SCREENING [facility] Start: 1989 Adult depression scr [facility] assessment DEPRESSION SCREENING [facility] Start: 1977 COVID-19 VACCINE (#1) COVID-19 VACCI NE (#1) [facility] Payers Date Payer Category Payer Unknown [id number] 2021 Unknown LEONCIO DUKES SS PPO [id number] 2021-Present [phone] [address] [place] [address] PPO [id number] 1975 Unknown [id number] Social History Date Type Detail Facility Start: 09-24-2021 Tobacco smoking stat us [facility] Never smoked tobacco [facility] Start: 09-24-2021 Tobacco use and exposure Smokeless tobacco non-user [facility] Start: 09-24-2021 Alcohol intake Current drinke r of alcohol (finding) [facility] Start: 09-24-2021 History SDOH Alcohol Comment social beer [facility] Start: 1975 Sex Assigned At Not on file C [place] Start: 09-14-2021 End: 09-24-2021 Exposure to SARS-CoV-2 (event) Not sure [facility] Work Phone: [facility] note 09-24-2021 Note Date & Type Note Facility 09-24-2021 Note HNO ID: [id number] Author: Rick Mariscal MD Service: ? Author [...] - CONSULT TO OPHTHALMOLOGY Rick Mariscal MD [facility] History of Present illness Narrative 09-24-2021 [...] Rick Mariscal MD documented in this encounter [facility] Evaluation note Note Date & Type Note Facility documented in this encounter [facility] Summary Purpose Family History No Family History Records FoundNo Family History Records Found Advance Directives No Advanced Directives Records FoundNo Advanced Directives Records Found Reason for Referral Specialty Diagnoses / Procedures Referred By Mira t Referred To Contact Ophthalmology Diagnoses Eye pain, right Procedures CONSULT TO OPHTHALMOLOGY OFFICE/OUTPATIENT [facility] 60-74 MINUTES Rick Mariscal MD [address] [place] [address] Referral ID Status Reason Start Date Expiration Date Visits Requested Visits Authorized [id number] Authorized PCP Requested Referral 09/24/2021 09/24/2022 1 1 Additional Source Comments (unrecognized sect ion and content) No Status Records FoundNo Status Records Found INFORMATION SOURCE (unrecogn ized section and content) DATE CREATED AUTHOR AUTHOR'S ORGANIZ ATION 10/15/2021 [facility] Source Comments (unrecognize d section and content) In the event this informatio n is protected by the Federal Confidentiality of Alcohol and Drug Abuse Patient Records regulations: The Federal rules restrict any use of the information to criminally investigate or prosecute any alcohol or drug abuse patient.[facility] Reason for Visit (unrecogniz ed section and [...] BE BASED ON THE PRIMARY CLINICAL RECORDS. [facility]. provides no warranty or guarantee of the accuracy or completeness of information in this document.
== END | disposition home or self-care (01) ==
PROVIDERS: PCP Family Medicine; Referring Provider Anesthesiology Pain Medicine; Visit Provider Anesthesiology Pain Medicine
DX: M25.512 Pain in left shoulder (principal)
CPT/HCPCS: 73221

== ENCOUNTER → 2023-04-14 | Outpatient (CLI) | payer BC, SELFPAY ==
[2023-04-14 11:14] LABS: Protein, Urine (Random) 26.4 mg/dL (<11.9); Protein:Creat Ratio 232 mg/g CRE (0-200)
[2023-04-14 11:27] LABS: Albumin, Serum 3.7 g/dL (3.2-5.0); BUN 11 mg/dL (7-18); BUN/Creat Ratio 9.1 RATIO (10-20); Calcium,Total 9.2 mg/dL (8.5-10.1); Chloride 107 mmol/L (98-107); Creatinine, Serum 1.21 mg/dL (0.70-1.30); EST Glomerular Filtration Rate 69 mL/min (>60); Est Glom Filt Rate - Afr Amer 83 mL/min (>60); Glucose 121 mg/dL (74-106); Phosphorus 2.8 mg/dL (2.5-4.9); Potassium 4.2 mmol/L (3.5-5.1); Sodium Level 138 mmol/L (136-145)
== END | disposition home or self-care (01) ==
LOC: POLAB3 10:07
PROVIDERS: PCP Family Medicine; Visit Provider Internal Medicine Nephrology
DX: N18.31 Chronic kidney disease, stage 3a (principal); R80.9 Proteinuria, unspecified
CPT/HCPCS: 36415; 80069; 82570; 84156

== ENCOUNTER → 2023-07-02 | Outpatient (CLI) | payer BC, SELFPAY ==
[2023-07-02 08:11] LABS: Absolute Lymphocyte Count 2.59 X10^3/uL (0.83-4.51); Absolute Neutrophil Count 3.4 X10^3/uL (2.0-7.7); Basophil# 0.06 X10^3/uL; Basophil% 0.9 % (0-1); Eosinophils% 1.4 % (0-5); Hematocrit 42.3 % (40-54); Hemoglobin 13.6 g/dL (13.0-16.5); Lymphocyte # 2.59 X10^3/ul (0.83-4.51); Lymphocyte % 37.5 % (19-41); Mean Corp Hgb Conc 32.2 g/dL (32-36); Mean Corpuscular Hgb 28.8 pg (27.0-32.0); Mean Corpuscular Volume 89.6 fL (80-94); Mean Platelet Vol. 8.6 fl (6.2-12.0); Monocyte# 0.76 X10^3/uL; NRBC Flagged by Analyzer 0 % (0-5); Neutrophil # 3.37 X10^3/uL (2.7-7.7); Neutrophil % 48.9 % (47-70); Platelet Count 313 K/mm3 (150-450); RBC Distribution Width CV 12.7 % (11.6-14.6); Red Blood Count 4.72 M/mm3 (4.6-6.2); White Blood Count 6.9 K/mm3 (4.4-11.0)
[2023-07-02 08:35] LABS: ALB/GLOB Ratio 1.3 RATIO (0.9-2.4); AST(SGOT) 19 U/L (15-37); Alanine Aminotransfer ALT/SGPT 38 U/L (16-61); Alkaline Phosphatase 60 U/L (45-117); Anion Gap 5 (5-15); BUN 16 mg/dL (7-18); Calcium,Total 9.4 mg/dL (8.5-10.1); Chloride 104 mmol/L (98-107); Creatinine, Serum 1.14 mg/dL (0.70-1.30); EST Glomerular Filtration Rate 73 mL/min (>60); Est Glom Filt Rate - Afr Amer 89 mL/min (>60); Globulin 3.1 g/dL (2.2-4.2); Glucose 108 mg/dL (74-106); LDH 128 U/L (87-241); Potassium 4.5 mmol/L (3.5-5.1); Protein, Total 7.1 g/dL (6.4-8.2); Sodium Level 138 mmol/L (136-145)
[2023-07-02 08:36] LABS: PSA,Total - Annual Screen 0.16 ng/mL (0.00-4.00)
[2023-07-04 16:09] LABS: Albumin 3.9 g/dL (2.9-4.4); Alpha-1-Globulins 0.2 g/dL (0.0-0.4); Free Kappa Light Chains 427.7 mg/L (3.3-19.4); Free Lambda Light Chains 6.6 mg/L (5.7-26.3); Gamma Globulin 0.4 g/dL (0.4-1.8); Immunoglobulin A 779 mg/dL (90-386); Immunoglobulin G 498 mg/dL (603-1613); Immunoglobulin M 14 mg/dL (20-172); PROEL- TOTAL PROTEIN 6.9 g/dL (6.0-8.5)
== END | disposition home or self-care (01) ==
PROVIDERS: PCP Family Medicine; Referring Provider Internal Medicine Hematology & Oncology; Visit Provider Internal Medicine Hematology & Oncology
DX: Z12.5 Encounter for screening for malignant neoplasm of prostate (principal); C90.00 Multiple myeloma not having achieved remission
CPT/HCPCS: 36415; 80053; 82784; 83615; 83883; 84153; 84165; 85025; 86334; G0103

== ENCOUNTER → 2023-10-25 | Outpatient (CLI) | payer BC, SELFPAY ==
[2023-10-25 16:15] LABS: Albumin, Serum 3.8 g/dL (3.2-5.0); BUN 12 mg/dL (7-18); BUN/Creat Ratio 9.2 RATIO (10-20); Calcium,Total 9.5 mg/dL (8.5-10.1); Chloride 104 mmol/L (98-107); Creatinine, Serum 1.31 mg/dL (0.70-1.30); EST Glomerular Filtration Rate 62 mL/min (>60); Est Glom Filt Rate - Afr Amer 76 mL/min (>60); Glucose 92 mg/dL (74-106); Phosphorus 3.9 mg/dL (2.5-4.9); Sodium Level 138 mmol/L (136-145)
[2023-10-25 16:43] LABS: Protein:Creat Ratio 273 mg/g CRE (0-200)
== END | disposition home or self-care (01) ==
LOC: LAB 14:53
PROVIDERS: PCP Family Medicine; Referring Provider Internal Medicine Nephrology; Visit Provider Internal Medicine Nephrology
DX: N18.31 Chronic kidney disease, stage 3a (principal)
CPT/HCPCS: 36415; 80069; 82570; 84156

== ENCOUNTER → 2023-11-01 | Outpatient (CLI) | payer BC, SELFPAY ==
--- NOTE | 2023-11-01 09:00 | RAD_ITS ---
STUDY: X-RAY BONE SURVEY COMPLETE REASON FOR EXAM: Male, 48 years old. Smoldering myeloma. Evaluate for bone lesions. TECHNIQUE: Frontal and lateral views of the skull, frontal and lateral views of the cervical spine, the thoracic spine and lumbar spine, bilateral rib x-rays, frontal view of the chest, frontal view of the pelvis and both hips, frontal views of both femurs, both lower extremities and both upper extremities were obtained on 27 images. COMPARISON: Prior bone survey dated September 27, 2022 FINDINGS: CHEST: Borderline cardiomegaly with no other abnormality of the chest.. PELVIS: Mild osteopenia with no focal lytic lesions. CERVICAL SPINE: Mild osteopenia with no focal lytic lesions. THORACIC SPINE: Mild osteopenia with no focal lytic lesions. LUMBAR SPINE: Mild osteopenia with no focal lytic lesions. RIGHT FEMUR: Mild osteopenia with no focal lytic lesions. LEFT FEMUR: Mild osteopenia with no focal lytic lesions. RIGHT HUMERUS : Mild osteopenia with no focal lytic lesions. LEFT HUMERUS: Mild osteopenia with no focal lytic lesions. SKULL: Mild osteopenia with no focal lytic lesions. RAD/Bone Survey Comp(Axial&Append) IMPRESSION: Borderline cardiomegaly. Mild osteopenia with no focal lytic lesions.. Electronically Signed: Yair Blair MD at 10:10 EDT ,
[2023-11-01 10:24] LABS: Absolute Lymphocyte Count 2.52 X10^3/uL (0.83-4.51); Absolute Neutrophil Count 3.3 X10^3/uL (2.0-7.7); Basophil# 0.05 X10^3/uL; Basophil% 0.7 % (0-1); Eosinophils% 1.5 % (0-5); Hematocrit 40.5 % (40-54); Lymphocyte # 2.52 X10^3/ul (0.83-4.51); Lymphocyte % 36.7 % (19-41); Mean Corp Hgb Conc 32.1 g/dL (32-36); Mean Corpuscular Volume 90.4 fL (80-94); Mean Platelet Vol. 8.6 fl (6.2-12.0); Monocyte# 0.84 X10^3/uL; Monocyte% 12.2 % (0-10); NRBC Flagged by Analyzer 0 % (0-5); Neutrophil # 3.33 X10^3/uL (2.7-7.7); Neutrophil % 48.5 % (47-70); Platelet Count 324 K/mm3 (150-450); RBC Distribution Width CV 12.7 % (11.6-14.6); RBC Distribution Width SD 41.8 fl (35.1-43.9); Red Blood Count 4.48 M/mm3 (4.6-6.2); White Blood Count 6.9 K/mm3 (4.4-11.0)
[2023-11-01 10:53] LABS: AST(SGOT) 15 U/L (15-37); Alanine Aminotransfer ALT/SGPT 37 U/L (16-61); Albumin, Serum 3.7 g/dL (3.2-5.0); Alkaline Phosphatase 61 U/L (45-117); Anion Gap 4 (5-15); BUN 13 mg/dL (7-18); BUN/Creat Ratio 11.2 RATIO (10-20); Calcium,Total 9.6 mg/dL (8.5-10.1); Chloride 103 mmol/L (98-107); Creatinine, Serum 1.16 mg/dL (0.70-1.30); EST Glomerular Filtration Rate 72 mL/min (>60); Est Glom Filt Rate - Afr Amer 87 mL/min (>60); Globulin 3.7 g/dL (2.2-4.2); Glucose 98 mg/dL (74-106); LDH 138 U/L (87-241); Potassium 4.5 mmol/L (3.5-5.1); Protein, Total 7.4 g/dL (6.4-8.2); Sodium Level 137 mmol/L (136-145)
[2023-11-03 16:09] LABS: Albumin 3.8 g/dL (2.9-4.4); Alpha-1-Globulins 0.2 g/dL (0.0-0.4); Gamma Globulin 0.4 g/dL (0.4-1.8); Immunoglobulin A 717 mg/dL (90-386); Immunoglobulin G 480 mg/dL (603-1613); Immunoglobulin M 10 mg/dL (20-172); PROEL- TOTAL PROTEIN 6.8 g/dL (6.0-8.5)
== END | disposition home or self-care (01) ==
PROVIDERS: PCP Family Medicine; Referring Provider Internal Medicine Hematology & Oncology; Visit Provider Internal Medicine Hematology & Oncology
DX: C90.00 Multiple myeloma not having achieved remission (principal)
CPT/HCPCS: 36415; 77075; 80053; 82784; 83615; 84165; 85025; 86334

== ENCOUNTER → 2024-02-06 | Outpatient (CLI) | payer BC, SELFPAY ==
[2024-02-06 15:53] LABS: Anion Gap 6 (5-15); BUN 13 mg/dL (7-18); BUN/Creat Ratio 11.2 RATIO (10-20); Calcium,Total 9.2 mg/dL (8.5-10.1); Chloride 107 mmol/L (98-107); Creatinine, Serum 1.16 mg/dL (0.70-1.30); EST Glomerular Filtration Rate 72 mL/min (>60); Est Glom Filt Rate - Afr Amer 87 mL/min (>60); Glucose 104 mg/dL (74-106); Potassium 4.3 mmol/L (3.5-5.1); Sodium Level 138 mmol/L (136-145)
== END | disposition home or self-care (01) ==
LOC: LAB 14:57
PROVIDERS: PCP Family Medicine; Referring Provider Internal Medicine Nephrology; Visit Provider Internal Medicine Nephrology
DX: N18.31 Chronic kidney disease, stage 3a (principal)
CPT/HCPCS: 36415; 80048

== ENCOUNTER → 2024-09-25 | Outpatient (CLI) | payer BC, SELFPAY ==
[2024-09-25 15:34] LABS: AST(SGOT) 29 U/L (<=37); Alanine Aminotransfer ALT/SGPT 51 U/L (<=46); Albumin, Serum 4.4 g/dL (3.5-5.0); Alkaline Phosphatase 64 U/L (40-129); Anion Gap 15 (5-15); BUN 10 mg/dL (4-19); BUN/Creat Ratio 7.1 RATIO (10-20); Calcium,Total 9.5 mg/dL (7.6-11.0); Carbon Dioxide 22.9 mmol/L (21.0-32.0); Chloride 103 mmol/L (98-108); Globulin 2.4 g/dL (2.2-4.2); Glucose 146 mg/dL (70-99); Potassium 4.0 mmol/L (3.3-5.1)
[2024-09-25 15:36] LABS: Creatinine, Urine (random) 213.00 mg/dL (39.00-259.00); Protein, Urine (Random) 105.0 mg/dL (0.0-12.0); Protein:Creat Ratio 493 mg/g CRE (0-200)
== END | disposition home or self-care (01) ==
LOC: LAB 14:14
PROVIDERS: PCP Family Medicine; Referring Provider Internal Medicine Nephrology; Visit Provider Internal Medicine Nephrology
DX: R80.9 Proteinuria, unspecified (principal)
CPT/HCPCS: 36415; 80053; 82570; 84156

== ENCOUNTER → 2024-11-05 | Outpatient (CLI) | payer BC, SELFPAY ==
--- NOTE | 2024-11-05 12:47 | RAD_ITS ---
PROCEDURE: ABDOMEN SINGLE VIEW 11/05/2024 REASON FOR EXAM: ABDOMINAL PAIN TECHNIQUE: Procedure Code: RADABD Modality: DX Procedure: ABDOMEN SINGLE VIEW COMPARISON: Abdomen study dated 12/04/2020 FINDINGS: Bowel gas: A moderate amount of stool and gas is present throughout a nondistended colon. No free air is seen. Please note however that free air could be present and obscured due to the hemidiaphragms not been entirely included on this study. Psoas muscles and renal outlines are partially obscured by overlying bowel gas and fecal material within the colon. No gross organomegaly is seen. Lower thoracic spine, lumbar spine and visualized upper pelvic structures demonstrate normal mineralization. There are no fractures or dislocations. Calcifications: No abnormal calcific densities are seen to suggest renal stone. Phleboliths are seen in the pelvis. RAD/Abdomen Single View IMPRESSION: No acute abdominal process is identified radiographically. If the patient's sy mptoms continue or worsen, follow-up imaging is recommended. Reading Location: [id number]
[2024-11-05 15:27] LABS: Hematocrit 38.0 % (40-54); Hemoglobin 12.7 g/dL (13.0-16.5); Immature Granulocytes Count 0.030 X10^3/uL (0.0-0.0); Mean Corp Hgb Conc 33.4 g/dL (32-36); Mean Corpuscular Volume 91.8 fL (80-94); Mean Platelet Vol. 9.2 fl (6.2-12.0); NRBC Flagged by Analyzer 0 % (0-5); Platelet Count 276 K/mm3 (150-450); RBC Distribution Width CV 12.4 % (11.6-14.6); RBC Distribution Width SD 41.5 fl (35.1-43.9); Red Blood Count 4.14 M/mm3 (4.6-6.2); White Blood Count 6.1 K/mm3 (4.4-11.0)
[2024-11-05 16:06] LABS: AST(SGOT) 21 U/L (<=37); Alanine Aminotransfer ALT/SGPT 38 U/L (<=46); Albumin, Serum 4.4 g/dL (3.5-5.0); Alkaline Phosphatase 58 U/L (40-129); Anion Gap 14 (5-15); BUN 13 mg/dL (4-19); BUN/Creat Ratio 11.4 RATIO (10-20); Calcium,Total 9.2 mg/dL (7.6-11.0); Carbon Dioxide 24.9 mmol/L (21.0-32.0); Chloride 101 mmol/L (98-108); Globulin 2.5 g/dL (2.2-4.2); Glucose 164 mg/dL (70-99); Potassium 4.3 mmol/L (3.3-5.1)
== END | disposition home or self-care (01) ==
LOC: MTLAB 12:47
PROVIDERS: PCP Family Medicine
DX: R10.9 Unspecified abdominal pain (principal)
CPT/HCPCS: 36415; 74018; 80053; 85025

== ENCOUNTER → 2024-11-29 | Outpatient (CLI) | payer BC, SELFPAY ==
[2024-11-29 11:14] LABS: Hematocrit 39.5 % (40-54); Hemoglobin 13.4 g/dL (13.0-16.5); Immature Granulocytes Count 0.020 X10^3/uL (0.0-0.0); Mean Corp Hgb Conc 33.9 g/dL (32-36); Mean Corpuscular Volume 89.6 fL (80-94); Mean Platelet Vol. 8.3 fl (6.2-12.0); NRBC Flagged by Analyzer 0 % (0-5); Platelet Count 304 K/mm3 (150-450); RBC Distribution Width CV 12.5 % (11.6-14.6); RBC Distribution Width SD 41.1 fl (35.1-43.9); Red Blood Count 4.41 M/mm3 (4.6-6.2); White Blood Count 5.4 K/mm3 (4.4-11.0)
[2024-11-29 12:07] LABS: LDH 147 U/L (87-241)
[2024-11-29 12:30] LABS: AST(SGOT) 25 U/L (<=37); Alanine Aminotransfer ALT/SGPT 40 U/L (<=46); Albumin, Serum 4.5 g/dL (3.5-5.0); Alkaline Phosphatase 51 U/L (40-129); Anion Gap 11 (5-15); BUN 11 mg/dL (4-19); BUN/Creat Ratio 9.7 RATIO (10-20); Calcium,Total 9.5 mg/dL (7.6-11.0); Carbon Dioxide 25.6 mmol/L (21.0-32.0); Chloride 102 mmol/L (98-108); Globulin 2.4 g/dL (2.2-4.2); Glucose 105 mg/dL (70-99); Potassium 4.6 mmol/L (3.3-5.1)
[2024-12-03 14:08] LABS: Albumin 4.0 g/dL (2.9-4.4); Gamma Globulin 0.4 g/dL (0.4-1.8); Immunoglobulin A 435 mg/dL (90-386); Immunoglobulin G 471 mg/dL (603-1613); Immunoglobulin M 7 mg/dL (20-172); PROEL- TOTAL PROTEIN 6.8 g/dL (6.0-8.5)
== END | disposition home or self-care (01) ==
PROVIDERS: PCP Family Medicine; Referring Provider Internal Medicine Hematology & Oncology; Visit Provider Internal Medicine Hematology & Oncology
DX: C90.00 Multiple myeloma not having achieved remission (principal)
CPT/HCPCS: 36415; 77075; 80053; 82784; 83615; 83883; 84165; 85025; 86334

== ENCOUNTER → 2024-12-19 | Outpatient (CLI) | payer BC, SELFPAY ==
[2024-12-19 10:28] LABS: Hematocrit 37.9 % (40-54); Hemoglobin 12.8 g/dL (13.0-16.5); Mean Corp Hgb Conc 33.8 g/dL (32-36); Mean Corpuscular Volume 89.8 fL (80-94); Mean Platelet Vol. 9.0 fl (6.2-12.0); Platelet Count 273 K/mm3 (150-450); RBC Distribution Width CV 12.1 % (11.6-14.6); RBC Distribution Width SD 39.3 fl (35.1-43.9); Red Blood Count 4.22 M/mm3 (4.6-6.2); White Blood Count 5.0 K/mm3 (4.4-11.0)
[2024-12-19 11:13] LABS: AST(SGOT) 19 U/L (<=37); Alanine Aminotransfer ALT/SGPT 34 U/L (<=46); Albumin, Serum 4.4 g/dL (3.5-5.0); Alkaline Phosphatase 50 U/L (40-129); Anion Gap 12 (5-15); BUN 14 mg/dL (4-19); BUN/Creat Ratio 13.3 RATIO (10-20); Calcium,Total 9.4 mg/dL (7.6-11.0); Carbon Dioxide 25.3 mmol/L (21.0-32.0); Chloride 102 mmol/L (98-108); Cholesterol 205 mg/dL (<=200); Globulin 2.4 g/dL (2.2-4.2); Glucose 108 mg/dL (70-99); Low Density Lipoprotein Calc. 127 mg/dL; Potassium 4.3 mmol/L (3.3-5.1); Triglycerides 258 mg/dL; Very Low Density Lipoprotein 52 mg/dL (5-40); Vitamin D,25 Hydroxy 29.3 ng/mL (30-100); cholesterol:hdl ratio screen 6.33
== END | disposition home or self-care (01) ==
LOC: MTLAB 07:03
PROVIDERS: PCP Family Medicine; Referring Provider Family Medicine; Visit Provider Family Medicine
DX: E11.9 Type 2 diabetes mellitus without complications (principal); R53.83 Other fatigue
CPT/HCPCS: 36415; 80053; 80061; 82306; 84403; 84443; 85027

== ENCOUNTER 2024-12-28 11:32 | Emergency (ER) | payer BC, SELFPAY ==
[2024-12-28 11:33] VITALS: BP 143/93; PULSE 71; RESP 18; TEMP 36.6; O2SAT 95; BMI 45.6
[2024-12-28 11:51] LABS: Mucous, Urine 0 SEEN /hpf (<or=2+); Red Blood Cells-Urine 0 SEEN /hpf (0-5); Squamous Epithelial Cells - UA 0 SEEN /hpf (0-5)
[2024-12-28 12:04] LABS: Color, Urine Yellow (Yellow); Glucose, Dipstick Normal (Normal); Ketone-Dipstick Negative (Negative); Leukocyte Esterase-Dipstick Negative /ul (Negative); Nitrite-Dipstick Negative (Negative); Occult Blood-Urine Negative /ul (Negative); Protein-Dipstick Negative (Negative); Specific Gravity, Urine 1.010 (1.002-1.030); Urine Bilirubin Dipstick Negative (Negative)
[2024-12-28 12:09] LABS: Hematocrit 39.5 % (40-54); Hemoglobin 13.3 g/dL (13.0-16.5); Immature Granulocytes Count 0.020 X10^3/uL (0.0-0.0); Mean Corp Hgb Conc 33.7 g/dL (32-36); Mean Corpuscular Volume 91.0 fL (80-94); Mean Platelet Vol. 8.4 fl (6.2-12.0); NRBC Flagged by Analyzer 0 % (0-5); Platelet Count 281 K/mm3 (150-450); RBC Distribution Width CV 12.4 % (11.6-14.6); RBC Distribution Width SD 41.2 fl (35.1-43.9); Red Blood Count 4.34 M/mm3 (4.6-6.2); White Blood Count 5.8 K/mm3 (4.4-11.0)
--- NOTE | 2024-12-28 12:43 | CT_ITS ---
PROCEDURE: ABDOMEN/PELVIS WITHOUT CONT 12/28/2024 REASON FOR EXAM: LEFT LOWER RIB INJURY Left lower back and flank pain. TECHNIQUE: Procedure Code: CTABDPEL Modality: CT Procedure: ABDOMEN/PELVIS WITHOUT CONT Noncontrast technique limits evaluation of the abdominal and pelvic viscera. Coronal and Sagittal reconstruction series were provided. One or more dose reduction techniques were used (e.g., Automated exposure control, adjustment of the mA and/or kV according to patient size, use of iterative reconstruction technique). RADIATION DOSE SUMMARY: CTDlvol: 22.64 mGy DLP: 1262.64 mGycm COMPARISON: None FINDINGS: Lung bases: Minimal degree of increased linear markings in the posterior medial segments of both lower lobes suggestive of possible dependent atelectasis. No rib fracture is seen on limited views of the lower thoracic region. Liver: Diffuse fatty infiltration. Gallbladder: Unremarkable. Spleen: Normal size. Pancreas: Normal size. No surrounding inflammation. Adrenals: The adrenal glands are unremarkable. Kidneys: No urolithiasis. No hydronephrosis. Bladder: The urinary bladder is mildly distended. There is no evidence of bladder wall thickening. Bowel: Scattered sigmoid diverticula without evidence of diverticulitis. Appendix: Unremarkable Lymph nodes: Unremarkable. Vasculature: The abdominal aorta and IVC contours are normal. Noncontrast technique limits evaluation. Peritoneum / Retroperitoneum: Unremarkable Bones: Disc space narrowing and spondylosis at the L3-L4 and L4-L5 levels. CT/Abdomen/Pelvis without Cont IMPRESSION: Fatty infiltration of the liver. Mild degree of dependent bibasilar atelectasis. Reading Location: [id number]
[2024-12-28 12:44] LABS: AST(SGOT) 26 U/L (<=37); Alanine Aminotransfer ALT/SGPT 42 U/L (<=46); Albumin, Serum 4.4 g/dL (3.5-5.0); Alkaline Phosphatase 51 U/L (40-129); Anion Gap 10 (5-15); BUN 11 mg/dL (4-19); BUN/Creat Ratio 10.1 RATIO (10-20); Calcium,Total 9.4 mg/dL (7.6-11.0); Carbon Dioxide 27.2 mmol/L (21.0-32.0); Chloride 102 mmol/L (98-108); Estimated Creatinine Clearance 114.25 ml/min (50-250); Globulin 2.7 g/dL (2.2-4.2); Glucose 126 mg/dL (70-99); Potassium 4.4 mmol/L (3.3-5.1)
[2024-12-28] MEDS: Ketorolac 30 MG/ML Syringe IV (12:52)
--- NOTE | 2024-12-28 13:25 | EX.ED.GENINJ ---
HPI History of Present Illness Chief Complaint: Flank Pain Informant: patient and spouse/S.O. Narrative Narrative: 49-year-old male presenting to the emergency room with left flank pain. Patient states for the past several days he had some soreness in the left lower posterior mid axillary rib area. Today he had a very forceful sneeze and felt severe pain and has now had pain with movement. He notes no radiation of the pain. No shortness of breath coughing. No urinary or bowel changes. 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 He states he does not know of any bone lesions. [facility] Medical History Diabetes History of left heart catheterization (LHC) (~02/23/22) Abnormal stress test ISIDRO (obstructive sleep apnea) SVT (supraventricular tachycardia) Myeloma History of stress test Wears contact lenses Alcohol use CPAP (continuous positive airway pressure) dependence Sleep apnea History of irregular heartbeat Bloating Change in bowel habits Anemia Hiatal hernia Anxiety Lipoma Home Medications ?Medication ?Instructions ?Recorded ?Last Taken ?Type nebivolol 5 mg tablet (Bystolic) 5 mg PO DAILY VENTRICULAR ECTOPY 01/03/18 09/29/21 History losartan 25 mg tablet 25 mg PO DAILY 01/07/22 Unknown History venlafaxine 150 mg 150 mg PO DAILY 01/07/22 Unknown History capsule,extended release 24 hr (Effexor XR) metformin 500 mg tablet 500 mg PO DAILY 07/06/23 Unknown History semaglutide 0.25 mg or 0.5 mg (2 0.5 mg subcut QWEEK 11/09/23 Unknown History mg/3 mL) subcutaneous pen injector (Ozempic) esomeprazole magnesium 40 mg 40 mg PO BID PRN 08/27/24 Unknown History capsule,delayed release (Nexium) Allergy/AdvReac Type Severity Reaction Status Date / Time No Known Allergies Allergy Verified 12/28/24 11:35 Family History Father Throat cancer Mother Lung disease Grandfather Heart disease Myocardial infarction Surgical History H/O shoulder replacement Social History Smoking Status: Former smoker Tobacco: How many years used: 15 Smokeless tobacco user: chewing tobacco second hand exposure: No alcohol intake: current details: 6 beers substance use type: does not use caffeine: Yes Type: carbonated beverages Number of servings: 1, coffee Number of servings: 1 and tea what type of physical activity do you participate in: walking, bicycling and weight training frequency: 3-4 times per week angely/gnosticist: Nondenominational seatbelt use: sometimes do you feel safe at home: Yes ROS ROS ED Constitutional Constitutional ED: Denies chills, fever(s) or weight loss Eyes Eyes: Denies change in vision or diplopia ENT ENT ED: Denies ear pain, rhinorrhea or sore throat Cardiovascular Cardiovascular: Denies chest pain, orthopnea, palpitations or racing heartbeat Respiratory/Chest Respiratory/Chest: Denies cough, dyspnea or orthopnea Gastrointestinal Gastrointestinal: Denies abdominal pain, diarrhea, nausea or vomiting Genitourinary Genitourinary ED: Denies dysuria, hematuria or urinary frequency Musculoskeletal Musculoskeletal: Reports back pain and other Details: Left lower rib pain ; Denies arthralgias or myalgias Integumentary Denies abscess or rash Neurologic Neurologic: Denies headache(s) or weakness Psychiatric Psychiatric: Denies anxiety, depression, suicidal ideation or suicidal thoughts Endocrine Endocrinology: Denies polydipsia, polyphagia or polyuria Allergic/Immunologic Allergic/Immunologic ED: Denies mouth swelling, tongue swelling or urticaria EXAM Physical Exam Const Vital Signs: 12/28/24 11:33 12/28/24 13:35 12/28/24 14:10 Temperature 97.8 F 98.2 F Temperature Source Oral Pulse Rate 71 66 84 Respiratory Rate 18 14 16 Blood Pressure 143/93 H 128/75 H 117/91 H Blood Pressure Mean 109 92 99 Pulse Ox 95 96 100 Oxygen Delivery Method Room Air Room Air Positive well nourished and well developed General Appearance ED: well developed and NAD HEENT Reports normocephalic, head/scalp atraumatic and moist mucous membranes Eyes PERRL and EOMs intact bilaterally Neck full ROM, no lymphadenopathy, supple and no JVD Chest Wall Chest Narrative: There is very focal tenderness of the left posterior mid axillary around rib 9-10. I do not appreciate any ecchymosis. There is no subcutaneous emphysema or crepitance felt. Resp normal respiratory effort and clear to auscultation bilaterally Cardio regular rate, regular rhythm and no murmurs GI normal to inspection, nondistended, normoactive bowel sounds and non-tender Palpation: soft Back/Spine no CVA tenderness Back/Spine Narrative: Painful range of motion. Extremity normal to inspection General Extremety ED: Negative for edema General Extremity: Negative for edema Neuro oriented x3 and CN's II-XII intact bilaterally Sensorium / Orientation: alert Motor Exam: strength 5/5 throughout Psych mental status grossly normal Mood & Affect: Negative for depressed or tearful Skin no rashes or lesions noted and no wounds MDM MDM MDM Narrative Medical decision making narrative: Differential diagnosis includes muscular strain rib fracture ureterolithiasis colitis splenic injury pneumothorax Clinically I doubt pneumothorax. He is not having any dyspnea shortness of breath and has equal lung sounds. CT of the flank was obtained which demonstrates a rib fracture of about rib 10. This appears nondisplaced and below the lung simon. Urinalysis is negative. Basic blood work is negative. Patient was given Toradol for pain as he does not wish any narcotics. Home care discussed with patient and he and his were updated with the plan and the above findings. Return if worsening or concerns History & Record Review Discussion w/independent historian: Patient and Family Additional record(s) reviewed:: Prior outpatient record Lab Data Attestation: I reviewed the patient's lab results. Labs: Laboratory Results - last 24 hr 12/28/24 12/28/24 11:40 12:00 WBC 5.8 RBC 4.34 L Hgb 13.3 Hct 39.5 L MCV 91.0 MCH 30.6 MCHC 33.7 RDW Std Deviation 41.2 RDW Coeff of Romaine 12.4 Plt Count 281 MPV 8.4 Immature Gran % (Auto) 0.300 Neut % (Auto) 52.1 Lymph % (Auto) 33.3 Bartholomew % (Auto) 11.7 H Eos % (Auto) 1.7 Baso % (Auto) 0.9 Absolute Neuts (auto) 3.0 Absolute Lymphs (auto) 1.93 Nucleated RBC % 0 Sodium 139 Potassium 4.4 Chloride 102 Carbon Dioxide 27.2 Anion Gap 10 BUN 11 Creatinine 1.08 Estim Creat Clear Calc 114.25 Est GFR (MDRD) Non-Af 85 BUN/Creatinine Ratio 10.1 Glucose 126 H Calcium 9.4 Total Bilirubin 0.21 AST 26 ALT 42 Alkaline Phosphatase 51 Total Protein 7.2 Albumin 4.4 Globulin 2.7 Albumin/Globulin Ratio 1.6 Urine Color Yellow Urine Clarity Clear Urine pH 8.0 Ur Specific [place] 1.010 Urine Protein Negative Urine Glucose (UA) Normal Urine Ketones Negative Urine Occult Blood Negative Urine Nitrite Negative Urine Bilirubin Negative Urine Urobilinogen Normal Ur Leukocyte Esterase Negative Urine RBC 0 SEEN Urine WBC 0 SEEN Ur Squamous Epith Cells 0 SEEN Urine Bacteria 0 SEEN Urine Mucus 0 SEEN Radiography Diagnostic Testing: Clinical Impression(s) from Imaging Studies Abdomen/Pelvis CT 12/28/24 12:43 IMPRESSION: Fatty infiltration of the liver. Mild degree of dependent bibasilar atelectasis. Reading Location: [facility] Discharge Plan Triage Chief Complaint: Flank Pain Other Complaint: Back ED Provider: Luis Manuel Tripp Dx/Rx/DC Orders Clinical Impression: Fracture of left tenth rib Instructions: ED Rib Fracture Prescriptions: No Action venlafaxine [Effexor XR] 150 mg capsule,extended release 24hr 150 mg PO DAILY losartan 25 mg tablet 25 mg PO DAILY esomeprazole magnesium [Nexium] 40 mg capsule,delayed release(DR/EC) 40 mg PO BID PRN metformin 500 mg tablet 500 mg PO DAILY Ozempic 0.25 mg or 0.5 mg (2 mg/3 mL) pen injector 0.5 mg subcut QWEEK Rx Instructions: for 4 weeks nebivolol [Bystolic] 5 MG tablet 5 mg PO DAILY Patient Comments: TAKE ONE TABLET BY MOUTH EVERY DAY Primary Care Provider: Hoang Montoya Referrals: Hoang Montoya MD [Primary Care Provider, Family Practice] - 1-2 Weeks Print Language: Occitan Disposition Disposition: Home, Self Care Discharge Date/Time: 12/28/24 14:10
[2024-12-28 13:35] VITALS: BP 128/75; PULSE 66; RESP 14; O2SAT 96
[2024-12-28 14:10] VITALS: BP 117/91; PULSE 84; RESP 16; TEMP 36.8; O2SAT 100
== END 2024-12-28 14:10 | disposition home or self-care (01) ==
PROVIDERS: Emergency Provider Emergency Medicine; PCP Family Medicine; Visit Provider Emergency Medicine
DX: S22.32XA Fracture of one rib, left side, initial encounter for closed fracture (principal); E11.9 Type 2 diabetes mellitus without complications; X58.XXXA Exposure to other specified factors, initial encounter; F17.220 Nicotine dependence, chewing tobacco, uncomplicated; Z79.84 Long term (current) use of oral hypoglycemic drugs; Z79.85 Long-term (current) use of injectable non-insulin antidiabetic drugs
CPT/HCPCS: 74176; 80053; 81001; 85025; 96374; 99284; A4216

== ENCOUNTER → 2025-01-23 | Outpatient (CLI) | payer BC, SELFPAY ==
--- NOTE | 2025-01-23 10:52 | RAD_ITS ---
PROCEDURE: RIBS UNI MIN 3V W/PA CHEST 01/23/2025 REASON FOR EXAM: ? FX, L 10TH RIB TECHNIQUE: Procedure Code: RADRIB Modality: DX Procedure: RIBS UNI MIN 3V W/PA CHEST COMPARISON: 02/09/2022. FINDINGS: The lungs are clear. The cardiomediastinal silhouette appears unremarkable. No acute osseous abnormality. No displaced left-sided rib fracture is identified. RAD/Ribs Uni Min 3V w/PA Chest IMPRESSION: As above. Reading Location: [id number]
== END | disposition home or self-care (01) ==
LOC: MTLAB 10:49 → MTRAD 10:50
PROVIDERS: PCP Family Medicine; Referring Provider Family Medicine; Visit Provider Family Medicine
DX: S22.39XA Fracture of one rib, unspecified side, initial encounter for closed fracture (principal)
CPT/HCPCS: 71101